=== PATIENT | female | born 1935 | race Caucasian/White ===

== ENCOUNTER 2017-01-24 00:19 | Day surgery (SDC) | payer MEDICARE ==
[~2017-01-24] VITALS: Ht 162.6 cm; Wt 68.0 kg
[2017-01-24] VITALS (13 sets, daily range): BP systolic 161–206; BP diastolic 52–82; PULSE 61–74; RESP 14–19; O2SAT 94–97
[~2017-01-24 00:19] MED LIST: ASPI-973 PO; ATOR20TA PO; LABE300T PO; LOSA50TA37 PO; MULT1CAP33 PO; RANI150C4 PO
[2017-01-24] MEDS ORDERED: Sodium Bicarb 8.4% 150 mEq/1,000 mL D5W IV ONE ×2 (06:50)
[2017-01-24 09:19] LABS: BASOPHILS % (AUTO) 0.8 % (0-3); EOSINOPHILS % (AUTO) 2.9 % (0-5); MONOCYTES % (AUTO) 7.1 % (4-12); Mean Corpuscular Hemoglobin 28.7 pg (27.0-35.0); Mean Corpuscular Volume 91.1 fL (81-100); NEUTROPHILS % (AUTO) 71.1 % (40-74); Platelet Count 263 bil/L (150-400)
--- NOTE | 2017-01-24 09:57 | NUR ---
Admitted through [facility] for a left renal stent for stenosis. Pt understands plan of care, and is ready for procedure.
[2017-01-24] MEDS ORDERED: Nitroglycerin 50,000 mcg/250 mL D5W Premix IV ONE (11:34)
[2017-01-24] MEDS ORDERED: Heparin 1,000 Units/500 mL NS Premix IV ONE (11:54)
[2017-01-24] MEDS ORDERED: fentaNYL-PF 50 mCg/mL 2 mL Inj ONE ×2 (11:55→14:25)
[2017-01-24] MEDS ORDERED: Protamine Sulfate 10 mg/mL 5 mL Inj ONE (13:42)
[2017-01-24] MEDS ORDERED: 0.9% Sodium Chloride 1,000 ML ONE (14:18)
[2017-01-24] MEDS ORDERED: Heparin 1,000 Unit/mL 10 mL Inj ONE (14:18)
--- NOTE | 2017-01-24 14:30 | NUR ---
Returned from ear mold laboratory technician following a single stent to Left renal artery placed by Dr Thompson. Right femoral access site manual hold completed at 1430. BedRest for 6 hours with post procedure with IV fluids for 20 hours - renal protection with IV Bicarb at 82ccc/Hr. Plan for overnight stay [place] [facility] Family has spoken to Dr Thompson regarding results of procedure.
[2017-01-24] MEDS ORDERED: 0.9% Sodium Chloride 250 ML BOLUS IV PRN (16:35)
[2017-01-24] MEDS ORDERED: Atropine 1 mg/10 mL (Code) Syringe IVPUSH PRN (16:35)
[2017-01-24] MEDS ORDERED: D5 IV SCH (16:35)
[2017-01-24] MEDS ORDERED: SODIUM BICARB IV SCH (16:35)
[2017-01-24] MEDS ORDERED: Ondansetron 2 mg/mL 2 mL Inj IVPUSH PRN (16:35)
[2017-01-24] MEDS ORDERED: Sodium Chloride LOK Flush 10 mL Syringe IVFLUSH PRN (16:35)
[2017-01-24] MEDS ORDERED: 0.9% Sodium Chloride 400 ML (4 HRS) IV ONE (16:35)
--- NOTE | 2017-01-24 16:44 | DI96 ---
[address] [address] PERIPHERAL CATHETERIZATION/INTERVENTION REPORT PATIENT: GIOVANI MARAVILLA : 1935 MR#: [id number] ADMIT: 01/24/2017 JOB ID: [id number] CORRECTED REPORT DATE OF PROCEDURE: 01/24/2017 PATIENT PROFILE: The patient is an 81-year-old lady with history of severe hypertension and hypercholesterolemia. She has left internal carotid artery stenosis and mild aortic stenosis. The patient has known chronic kidney disease stage 4 with atrophy of the right kidney. Renal artery duplex showed significant stenosis of the left renal artery with a peak velocity of 509 cm/second and a peak renal/aortic ratio of 5.98. PROCEDURE: 1. Conscious sedation for 1 hour and 45 minutes. 2. Vascular access from the right groin. 3. Right external iliac angiogram. 4. Abdominal aortogram with CO2 injection. 5. Selective left renal angiogram. 6. Balloon angioplasty and stenting to the proximal left renal artery stenosis. VASCULAR CLOSURE DEVICE: None. COMPLICATIONS: None. METHOD: Conscious sedation was achieved with IV Versed and IV fentanyl. Vascular access was obtained from the right groin under 1% lidocaine local anesthesia using a 6-Dutch sheath. It was somewhat difficult to advance an 0.035 wire into the abdominal aorta due to atherosclerotic plaque in the iliac artery. Right iliac angiogram was performed in the AP view via the femoral sheath with CO2 injection. A Glidewire together with a Kumpe catheter was then directed into the abdominal aorta. The femoral sheath was exchanged to a 25 cm long sheath. A 6-Dutch pigtail catheter was placed at the L2 level and an abdominal aortogram was performed in the AP view by injecting CO2 for 20 mL. Repeated doses of heparin were given in order to maintain ACT above 250. An IM guide and Shaffer 2 guide could not engage the left renal artery ostium. A 5-Dutch Rim catheter was then used to selectively engage the left renal artery. Left renal angiogram was performed in the AP view. A Spartacore wire was placed inside his left renal artery. The Rim catheter was then removed and a 6-Dutch JR4 guide was advanced. The proximal left renal artery lesion was pre-dilated with a 4.0 x 15 mm balloon. A Herculink 5 x 15 mm stent was placed in the proximal left renal artery and deployed at 14 atmospheres for 20 seconds. A 6 x 20 mm balloon was used to flare up the origin of the stent. It was inflated up to 8 atmospheres for 15 seconds. Final angiogram was obtained. Following sheath removal, hemostasis was achieved by manual compression. The patient tolerated the procedure well. She was transferred to the [facility] in good condition. TOTAL CONTRAST USED: 45 mL. TOTAL FLUOROSCOPY TIME: 13 minutes. RESULTS: 1. The right external iliac artery and right common femoral artery have diffuse atherosclerotic plaque. 2. There is a single left renal artery originating at the L2 vertebral body. 3. Severe 90% stenosis at the origin of the left renal artery with an 80 mm pressure gradient. 4. Successful balloon angioplasty and stenting to the severe left renal artery stenosis. Corrected by GS 03/01/17 at 9:34 DOS. MTDD
--- NOTE | 2017-01-24 17:17 | NUR ---
Report given to Fidel Lyn machine operator cane cutter for [facility]. No change in Right femoral access site - scant ooze, but soft and non-tender.
--- NOTE | 2017-01-24 18:21 | NUR ---
Patient arrived to [facility] : Patient arrived to [facility] at 1745. She remains in the Supine position untill 2030 per procedure protocol. She had Renal Stent placed. Her right groin site is soft with no clotting present . Small Dot of red blood under dressing noted. No active bleeding. Palpable pulses in patients right foot and left foot. Patient states that she is not having pain. Patient is eating her dinner. She has call light and was oriented to her caregivers. and call button.
[2017-01-25 00:18] VITALS: BP 184/66; PULSE 79; RESP 18; O2SAT 95
[2017-01-25 05:02] VITALS: BP 156/44; PULSE 73; RESP 18; O2SAT 95
--- NOTE | 2017-01-25 05:03 | NUR ---
Abdominal Discomfort Pt complaint of abdominal discomfort and received PO tylenol. Pt eventually went to sleep and after waking this morning for AM vitals Pt reported feeling no discomfort any more. Pt has been up to to BR several times to void no blood in urine noted, and Pt has been alert and oriented all shift.
[2017-01-25 05:05] VITALS: PULSE 77
[2017-01-25 06:57] LABS: Mean Corpuscular Hemoglobin 28.6 pg (27.0-35.0); Mean Corpuscular Volume 91.4 fL (81-100)
[2017-01-25 08:00] VITALS: PULSE 69
[2017-01-25 08:53] VITALS: BP 146/48; PULSE 70; RESP 16; O2SAT 96
[2017-01-25 12:24] VITALS: BP 181/65; PULSE 71; RESP 16; O2SAT 96
--- NOTE | 2017-01-25 13:38 | DIS ---
[address] [address] DISCHARGE SUMMARY PATIENT: GIOVANI MARAVILLA : 1935 MR#: [id number] ADMIT: 01/24/2017 JOB ID: [id number] DIS: 01/25/2017 ADMITTING DIAGNOSES: 1. Severe left renal artery stenosis. 2. Chronic kidney disease, stage 4. DISCHARGE DIAGNOSES: 1. Severe left renal artery stenosis. 2. Chronic kidney disease, stage 4. SECONDARY DIAGNOSES: 1. Atrophic right kidney. 2. Mild aortic stenosis. 3. Left internal carotid artery stenosis. 4. Hypertension. 5. Hyperlipidemia with target LDL less than 70 mg/dL. 6. Snoring. 7. Peripheral arterial disease. PROCEDURES: 1. Abdominal aortogram with CO2 injection. 2. Selective left renal angiogram. 3. Balloon angioplasty and stenting to the proximal left renal artery. COMPLICATIONS: None. HISTORY: Please see the detailed history in the accompanying office note dated January 11, 2017. The patient underwent left renal angiogram, which demonstrated severe 90% proximal left renal artery stenosis with 80 mm pressure gradient. This was successfully treated with balloon angioplasty and stenting. The patient was discharged from the hospital on the following day in good condition. Her BUN and creatinine on January 24, 2017 was 39 and 1.61 and came down to 27 and 1.39 on January 25, 2017. The patient will return to see me in 2-3 weeks with BMP. Her discharge medications remain the same with the addition of Plavix 75 mg once daily for at least three months. [facility]
--- NOTE | 2017-01-25 14:30 | NUR ---
Discharge Patient given discharge orders. Patient given hard copy of prescription. Patient given medication list with written and verbal times of when medication is due next. Patient IV removed fully intact and asymptomatic. Patient telemetry removed. Patient given informational packet. Patient assisted to main entrance by staff. Patient left with all personal belongings.
== END 2017-01-25 14:28 | disposition home or self-care (01) ==
LOC: SOUO 00:19 → MPC 17:48 → SOUO 23:59
PROVIDERS: ATTEND Internal Medicine Interventional Cardiology
DX: I70.1 Atherosclerosis of renal artery (principal); I12.9 Hypertensive chronic kidney disease with stage 1 through stage 4 chronic kidney disease, or unspecified chronic kidney disease; N18.4 Chronic kidney disease, stage 4 (severe); I65.22 Occlusion and stenosis of left carotid artery; I35.0 Nonrheumatic aortic (valve) stenosis; E78.5 Hyperlipidemia, unspecified; E78.00 Pure hypercholesterolemia, unspecified; Z79.82 Long term (current) use of aspirin
CPT/HCPCS: 36251; 36415; 37236; 80048; 85025; 85027; 85610; 93005; 99152; 99153; C1725; C1769; C1876; C1887; J1644; J2060; J2250; J2720; J3010; J7030; J7070; Q9967

== ENCOUNTER 2017-07-12 15:33 | Observation (INO) | payer MEDICARE ==
[2017-07-12] VITALS (13 sets, daily range): BP systolic 178–210; BP diastolic 56–79; PULSE 68–74; RESP 16–24; O2SAT 95–99
[~2017-07-12] VITALS: Ht 162.6 cm; Wt 62.6 kg
[~2017-07-12 15:33] MED LIST changes: +AMLO5TAB2 PO; +IRON1TAB97 PO
--- NOTE | 2017-07-12 16:56 | DRSVH ---
PROCEDURE: X-RAY CHEST ONE VIEW, PORTABLE ([id number]) INDICATIONS: hypertension, ?hypertensive emergency TECHNIQUE: One view of the chest was acquired. COMPARISON: [facility], XR CHEST 2VW, 07/10/2017, 13:25. FINDINGS: Surgical changes and devices: None. Lungs and pleura: No pleural effusions or pneumothorax. Moderate left basilar airspace opacity is pr esent, as before. Mediastinum: Mediastinal contours appear normal. Heart size is normal. Bones and chest wall: No suspicious bony lesions. Overlying soft tissues appear unremarkable. IMPRESSION: No change in left basilar pneumonia. Continued plain film surveillance is recommended to ensure resolution, and to exclude underlying or central malignancy. Dictated by: Melissa Colby M.D. on 07/12/2017 at 16:54 Approved by: Melissa Colby M.D. on 07/12/2017 at 16:54
--- NOTE | 2017-07-12 17:25 | ED.REPORT ---
HPI-General Illness Date of Service Jul 12, 2017 ED Provider: Andrez Cook MD Pt is an 82 y/o female w/ a hx of CKD 4, left renal artery stenosis, IgG monoclonal gammopathy, mild aortic stenosis, left ICA stenosis, HTN, HLD, PAD, presenting to the ED with family by recommendation of her louver door assembler due to severe hypertension. The patient was recommended to come to the ED by louver door assembler Dr. Richardson with concern for hypertensive emergency after persistent HTN of >200 systolic. Her blood pressure has been running high, however has been getting progressively worse over the past several days. They have been attempting to use labetalol but with only minimal success. No other notable alleviating or exacerbating factors. This morning she experiencing a mild, nonradiating, posterior RODRIGUEZ which resolved after taking ASA x2. She has been having tremors for about 1 month and also recently has been having unsteady gait. Pt denies vision changes, speech changes, focal numbness/weakness, chest pain, abdominal pain, SOB. She has been experiencing a cough for weeks which was diagnosed as pneumonia and was started on antibiotics with good resolve of symptoms. No other complaints at this time. Nursing Notes Stated Complaint: HYPERTENSION-SENT BY DRS OFFICE Chief Complaint: General Complaint Nursing Notes Reviewed: Yes Allergies: Coded Allergies: azithromycin (Verified Adverse Reaction, Intermediate, N/V, 01/24/17) Scheduled Aspirin (Aspirin) 81 Mg Tablet 81 MG PO QAM Atorvastatin (Lipitor) 20 Mg Tablet 20 MG PO HS Chlorthalidone (Chlorthalidone) 25 Mg Tablet 25 MG PO QAM Ferrous Sulfate (Ferrous Sulfate) 325 Mg Tablet 325 MG PO DAILY Labetalol (Labetalol) 200 Mg Tablet 400 MG PO TID Levofloxacin (Levofloxacin) 750 Mg Tablet 750 MG PO DAILY Lisinopril (Lisinopril) 10 Mg Tablet 10 MG PO QAM Multivitamin (Multivitamins) 1 Each Capsule 1 EACH PO DAILY Patiromer Calcium Sorbitex (Veltassa) 8.4 Gram Powd.pack 8.4 GM PO QAM Ranitidine (Ranitidine) 150 Mg Capsule 150 MG PO QAM Scheduled PRN Acetaminophen (Acetaminophen) 325 Mg Tablet 650 MG PO Q4H PRN PRN For Fever General Time Seen by MD: 16:13 Chief Complaint Other (HTN) Hx Obtained From: Patient Arrived By: Walk-in Sudden in Onset?: No Onset Occurred: Onset unknown Symptom Duration: Since onset Location: : Head Quality: Aching Severity: Current: No pain currently Severity: Maximum: Moderate Recent Healthcare: Recent doctor visit, Recent testing Past Medical History Past Medical History 1. Severe left renal artery stenosis. 2. Chronic kidney disease, stage 4. 1. Atrophic right kidney. 2. Mild aortic stenosis. 3. Left internal carotid artery stenosis. 4. Hypertension. 5. Hyperlipidemia with target LDL less than 70 mg/dL. 6. Snoring. 7. Peripheral arterial disease. Past Surgical History Cholecystectomy Lynn's diverticulum Left total knee replacement Left renal stent Smoking History Never Smoker Social History Alcohol Use: "Social" Drug Use: Denies drug use Other Social History: Good social support Ambulatory Status Independent Review of Systems Full Review of Systems Constitutional: Denies: Fever Eyes: Denies: Diplopia Ears / Nose / Throat: Denies: Sore throat Respiratory: Denies: Shortness of breath Cardiovascular: Denies: Chest pain GI: Denies: Abdominal pain, Vomiting Female: Denies: Dysuria Musculoskeletal: Denies: Back pain Hematologic: Denies Bruising Skin: Denies Rash Allergy / Immune: Denies: Itching Neurologic: Reports: Headache, Problem walking, Shaking, Denies: Confusion, Focal weakness, Numbness, Seizure, Slurred speech, Syncope , Unable to speak, Vision change Psychiatric: Denies: Change mental status Complete sys rev & neg: except as marked. Physical Exam Nursing note and vitals reviewed. Constitutional: Well-developed, well-nourished. Not diaphoretic. Head: Normocephalic and atraumatic. Mouth/Throat: Oropharynx is clear and moist. No oropharyngeal exudate. Eyes: EOM are normal. Pupils are equal, round, and reactive to light. Neck: Supple, no tracheal deviation. Cardiovascular: Normal rate, regular rhythm. Equal and intact distal pulses throughout. Pulmonary/Chest: Effort normal and breath sounds normal. No respiratory distress. Abdominal: Soft. No distension. There is no tenderness, rebound, or guarding. Musculoskeletal: Range of motion grossly intact, moving all extremities. No edema or tenderness appreciated. Neurological: AOx3. Grossly nonfocal exam. Strength and sensation intact and equal to bilateral upper and lower extremities. No facial droop. Normal finger to nose testing. Normal heel to hoover. Skin: Warm and dry, no rashes or pallor appreciated. Psychiatric: Appropriate mood and affect. Behavior appears normal. Vital Signs Vital Signs Date Time Temp Pulse Resp B/P Pulse Ox O2 Delivery O2 Flow Rate FiO2 07/12/17 18:36 196/58 07/12/17 18:10 194/65 07/12/17 17:47 70 18 210/69 99 Room Air 07/12/17 17:03 68 24 198/58 97 Room Air 07/12/17 16:51 198/58 07/12/17 16:50 201/63 07/12/17 15:42 36.6 73 18 181/79 96 Initial VS: Reviewed Interpretation & Diagnostics Lab Results Interpretation Result Diagram: 07/12/17 1739 07/12/17 1739 Test 07/12/17 17:39 07/12/17 17:40 07/12/17 17:51 White Blood Count 6.0th/mm3 (3.8-10.1) Red Blood Count 3.20mil/mm3 (3.90-5.20) Hemoglobin 9.0g/dL (12.0-15.6) Hematocrit 28.3% (35.0-46.0) Mean Corpuscular Volume 88.4fL (81-100) Mean Corpuscular Hemoglobin 28.1pg (27.0-35.0) Mean Corpuscular Hemoglobin Concent 31.8% (32.0-37.0) Red Cell Distribution Width 14.3% (12.3-15.4) Platelet Count 185bil/L (150-400) Neutrophils (%) (Auto) 70.6% (40-74) Lymphocytes (%) (Auto) 20.2% (14-46) Monocytes (%) (Auto) 6.3% (4-12) Eosinophils (%) (Auto) 2.2% (0-5) Basophils (%) (Auto) 0.5% (0-3) Prothrombin Time 11.8sec (8.1-12.5) Prothromb Time International Ratio 1.10ratio Sodium Level 138mEq/L (134-144) Potassium Level 5.2mEq/L (3.5-5.2) Chloride Level 108mEq/L (97-108) Carbon Dioxide Level 17mmol/L (18-29) Blood Urea Nitrogen 56mg/dL (8-27) Creatinine 3.01mg/dL (0.57-1.00) Estimat Glomerular Filtration Rate 21mL/min (>59) Glucose Level 93mg/dL (60-99) Calcium Level 9.7mg/dL (8.5-10.1) Magnesium Level 1.5mg/dL (1.6-2.6) Total Bilirubin 0.4mg/dL (0.0-1.2) Aspartate Amino Transf (AST/SGOT) 13U/L (0-50) Alanine Aminotransferase (ALT/SGPT) 8U/L (0-32) Alkaline Phosphatase 76U/L (25-165) Troponin T < 0.010ug/L (0.0-0.011) Total Protein 7.3g/dL (6.4-8.4) Albumin 3.6g/dL (3.4-5.0) Hold Boland Top Tube Received (Received) Hold Urine Received (Received) ECG Interpretation ECG Interpretation: Sinus rhythm rate 68 LVH Time: 16:50 Interpreted by: ED physician X-Ray Chest Interpretation Chest Xray Interpretation: IMPRESSION: No change in left basilar pneumonia. Continued plain film surveillance is recommended to ensure resolution, and to exclude underlying or central malignancy. Dictated by: Melissa Colby M.D. on 07/12/2017 at 16:54 Approved by: Melissa Colby M.D. on 07/12/2017 at 16:54 View: Portable, 1 view Interpretation / Wet Read by: Interpret - Radiologist CT Head Interpretation Study: Head CT no contrast Interpretation / Wet Read by: Interpret - Radiologist Re-Eval/Medical Decision Med Decision/Clinical Course In summary, 82-year-old female with a history of CKD presenting to the emergency department for evaluation of worsening hypertension in the setting of poor renal function and feeling unsteady. Obvious concern for hypertensive emergency; EKG demonstrates sinus rhythm with an LVH pattern; troponin negative. Hemoglobin of 9, creatinine of 3.01, magnesium of 1.5. Hemoglobin is stable from previous, however creatinine is slightly worse from earlier this month. Head CT negative for any acute bleed or other acute abnormality. Chest x-ray demonstrates a persistent left basilar opacity thought to be pneumonia; patient has been getting treatment for this and is asymptomatic at this time, however this may need to be followed further with a CT scan to further evaluate for neoplasm. Her neurologic exam here is grossly normal with intact [id number] and heel- to-hoover testing, cranial nerves intact, as well as her strength and sensation. She is not having any garbled speech. She does seem to be somewhat unsteady on her feet, however it is unclear if this is related to generalized weakness and does not seem to be focal on examination. I spoke with Dr. Richardson as per below; appreciate her involvement and recommendations. Patient hypertensive here in the ED and started on labetalol - initial goals will be to keep her systolic pressures within the 170s this evening. Tried multiple doses without success; will plan to start her on a labetalol drip for now to obtain target BP. I discussed the patient with the hospitalist, who agrees with the plan and to admit for further management and evaluation. Patient agreeable to the plan as stated, no further questions. Time of Eval: 17:29 Re-Evaluation/Progress Note: Pt rechecked. Informed pt of need for admission. Pt understands and agrees with plan for admission. All questions addressed. Consultation : Referral / Consult Name: Francsico Armstrong MD Consulted With: Nephrology Call Returned at: 15:23 [employer] Internship: Agrees with eval, Agrees with plan Note: Reduce HTN with Labetalol. Admit to hospital. Target SBP in 170s for tonight. Will consult during admit. Counseled Regarding: Diagnosis, Lab results, Need for admission Discharge & Departure Primary Impression: Severe hypertension Additional Impression: Chronic kidney disease Chronic kidney disease stage: stage 4 (severe) Qualified Code: N18.4 - Chronic kidney disease, stage 4 (severe) Disposition: ADMITTED TO HOSPITAL Discharge Condition All VS Reviewed: Yes Condition: Stable Referrals: Nandini Cotter (PCP) Crit Care Except Billable Proc Time Spent: 30-74 minutes Services Performed: Patient management by me, Time spent at bedside, Reviewing test results, Reviewing imaging, Discussing patient care, Documentation in record, Time with fam/surrogate Critical Care Notes: Please see MDM. Scribe Attestation Portions of this note were transcribed by Mike Loco. I, Dr. Cook personally performed the history, physical exam and medical decision-making; I reviewed and confirmed the accuracy of the information in the transcribed note. copies to: Nandini Cotter William B MD Jul 12, 2017 17:25 MIKE LOCO Jul 12, 2017 17:34
[2017-07-12 17:45] LABS: BASOPHILS % (AUTO) 0.5 % (0-3); EOSINOPHILS % (AUTO) 2.2 % (0-5); MONOCYTES % (AUTO) 6.3 % (4-12); Mean Corpuscular Hemoglobin 28.1 pg (27.0-35.0); Mean Corpuscular Volume 88.4 fL (81-100); NEUTROPHILS % (AUTO) 70.6 % (40-74); Platelet Count 185 bil/L (150-400)
[2017-07-12] MEDS ORDERED: Labetalol 5 mg/mL 20 mL Inj IVPUSH ONE ×3 (17:45→19:30)
[2017-07-12 17:58] LABS: INR 1.1 ratio
[2017-07-12 18:16] LABS: Magnesium 1.5 mg/dL (1.6-2.6)
[2017-07-12 18:22] LABS: TROPONIN T < 0.010 ug/L (0.0-0.011)
--- NOTE | 2017-07-12 18:34 | DRSVH ---
PROCEDURE: CT BRAIN WITHOUT CONTRAST ([id number]) INDICATIONS: hypertension, resolved headache TECHNIQUE: Noncontrast 4.5 mm thick angled axial sections acquired from the foramen magnum to the vertex, with c oronal reformats. COMPARISON: [facility], CT, BRAIN W/O CONTRAST, 06/17/2014, 13:57. FINDINGS: Image quality: Excellent. CSF spaces: Basal cisterns are patent. No extra-axial fluid collections. The ventricles are symmet megan in size and shape. Brain: No intracranial bleeds or masses. There is cerebral volume loss for age, with resultant vent ricular and sulcal prominence. There are periventricular and deep white matter chronic small vessel ischemic changes. There is intracranial internal carotid artery atherosclerosis. Skull and face: Calvarium and visualized facial bones appear intact, without suspicious lesions. Sinuses: Visualized sinuses and mastoids are clear. IMPRESSION: No acute intracranial process. Dictated by: Kali Mercado M.D. on 07/12/2017 at 18:30 Approved by: Kali Mercado M.D. on 07/12/2017 at 18:32
[2017-07-12] MEDS ORDERED: FERR-83 PO (19:19)
[2017-07-12] MEDS ORDERED: HYG25 PO (19:19)
[2017-07-12] MEDS ORDERED: LISI10TA PO (19:19)
[2017-07-12] MEDS ORDERED: LABE200T PO (19:19)
[2017-07-12] MEDS ORDERED: PATI8.4P PO (19:19)
[2017-07-12] MEDS ORDERED: Polyethylene Glycol (PEG) 17 Gm Powder PO PRN (19:30)
[2017-07-12] MEDS ORDERED: Alum-Mag Hydrox-Simeth 30 mL Suspension PO PRN (19:30)
[2017-07-12] MEDS ORDERED: Ondansetron 2 mg/mL 2 mL Inj IVPUSH PRN (19:30)
[2017-07-12] MEDS ORDERED: ACET325T51 PO (19:34)
[2017-07-12] MEDS ORDERED: LEVO750T39 PO (19:34)
[2017-07-12] MEDS ORDERED: Magnesium Sulf 2 Gm/50mL Water 2 GM in IV Premix 1 EACH IV ONE (19:40)
[2017-07-12] MEDS ORDERED: LABETALOL IV PRN (20:00)
[2017-07-12] MEDS ORDERED: SODIUM CHLORIDE 0.9% IV PRN (20:00)
[2017-07-12] MEDS ORDERED: 0.9% Sodium Chloride 250 ML ONE (20:10)
--- NOTE | 2017-07-12 20:56 | NUR ---
Admit nurse note Admission assessment completed based on pt. recall. Pt. denies complaints at present and is eating her dinner. She normally lives independently with her in [place] but came after her htn did not respond to at home labetolol. She developed a h/a and increased tremors today, saw her public policy analyst and was referred here. Son is at bedside and states pt. is anxious about leaving her at home. Allergy verified. pt. oriented to room and educated re: fall prevention and call fletcher. Med history obtained by ED pharmacist. Advance directives paperwork given per pt. request. Report given to Angy Love RN.
--- NOTE | 2017-07-12 21:59 | PCM.HPMED ---
Subjective Date of Service Jul 12, 2017 Primary Provider: Admitting Physician: Marquez Reyes MD Primary Care Physician: Nandini Cotter Attending Physician: Marquez Reyes MD Chief Complaint: Patient 82-year-old right-handed female from home was referred from her line up examiner for evaluation of severe hypertension. History of Present Illness: Patient carries a medical history significant for TIA, hypertension, hyperlipidemia, chronic kidney disease stage IV, and severe left renal stenosis status post stenting. Patient always had a concern for hypertension, reported bilateral posterior headache and increasing tremors started this morning. Patient went to her line up examiner for evaluation and found severe hypertension blood pressure 200/90 , thus, presented to the ED. , patient denies any headaches, dizziness, unilateral weakness, tingling, numbness, palpitation, shortness of breath, chest pain, or nausea or vomiting. Patient is noted to have mild right-sided facial droop, however this is more an inflammation as she has been irritating her left upper lips and due to dry mouth. Patient also observed to have mild dysarthria, however family noted that this is chronic. In the ED, patient blood pressure was 201/63. With labs creatinine 3.01, baseline 2.7-2.8. No elevated troponin, EKG unremarkable. Patient was thus given 2 doses of 20 mg of labetalol IV push. Due to headaches patient also had a CT head done, readings negative for any acute bleeding. Patient admitted for hypertensive emergency. Review of Systems: A comprehensive review of systems was conducted with the patient and found to be negative except as above in the History of Present Illness. Allergies Coded Allergies: azithromycin (Verified Adverse Reaction, Intermediate, N/V, 07/12/17) Home Medications Levaquin 750 mg daily Veltassa 8.4mg daily Labetalol 400 mg 3 times a day Lisinopril 10 mg daily Chlorthalidone 25 mg daily Ranitidine 150 mg daily Atorvastatin 20 mg daily Multivitamin Iron supplement Aspirin 81 mg daily PMH Severe left renal stenosis History of TIA Hypertension Dyslipidemia Chronic kidney disease stage IV Peripheral vascular disease Lynn's diverticular disease Surgical History Left renal balloon angioplasty 01/24/2017 Cholecystectomy Left total knee replacement Family History Telemetry history of hypertension Mother secondary to brain hemorrhage Father secondary to mesenteric ischemia Social History Hx Alcohol Use: Yes Hx Substance Use: No Hx Tobacco Use: No Smoking Status: Never Smoker Exam Vital Signs Vital Sign - Last Date Time Temp Pulse Resp B/P Pulse Ox O2 Delivery O2 Flow Rate FiO2 07/12/17 19:53 36.4 74 18 194/68 95 Room Air Exam General: No acute distress, appropriately interactive, tremulous, right-hand, no word salad, no expressive or receptive aphagia HEENT: Normocephalic, atraumatic. PERRLA, EOMI, Anicteric sclerae, moist conjunctivae. Neck: No JVD, No bruits. No lymphadenopathy or thyromegaly. Cardiovascular: Regular rate and rhythm, 2+ systolic murmur, no rub or gallop Pulmonary: b/l air sound with no mild wheezes, no rhonchi or crackles appreciated. Abdomen: +Bowel sound, Soft, nontender, nondistended. Extremities: No clubbing or cyanosis, no lymphedema, no b/l lower leg edema Skin: Normal temperature, turgor, and texture; no rash. No visualized skin ulcer. Neurological: CN II-VII grossly intact, moving equally on all 4 extremities, 5 out of 5 motor strength throughout, finger to nose and heel to hoover test negative. Psychiatric: Normal mood and affect. AOx3 Lab and Diagnostics Result Diagram: 07/12/17173807/12/171738 X-Rays, CTs and MRIs PROCEDURE: CT BRAIN WITHOUT CONTRAST ([id number]) INDICATIONS: hypertension, resolved headache IMPRESSION: No acute intracranial process. Dictated by: Kali Mercado M.D. on 07/12/2017 at 18:30 Assessment & Plan Patient is an 82-year-old right-handed female with a medical history significant for peripheral artery disease, chronic kidney disease stage IV, hypertension, dyslipidemia, and history of TIA presented headaches, admitted for hypertensive emergency. Hypertensive emergency -Has ANGELA, high BP possibly contributed to headache -CT head negative -Labetalol 20 mg IV push given in the ED -Restart home labetalol 400 mg 3 times a day -Consider adding clonidine or amlodipine to augment in the AM -Goal BP lower by 20-25% from 200 mmHg within the next 8 hours. If BP sustain above 200mmHg, nicardipine drip -Telemetry monitoring, neuro check every 4 hours, low threshold to MRI, or repeat CT head -Client Portfolio Manager Dr. AnantFrancisco saeed has been consulted and is following Acute on chronic kidney injury -Baseline creatinine 2.6-2.7 -Likely secondary to elevated blood pressure -Holding chlorthalidone and lisinopril -Hydrate with normal saline 100 mL an hour Hypomagnesemia -Replace per protocol Bronchitis -Patient was diagnosed with bronchitis and 07/10/2017 -Continue taking Levaquin for 10 days course Dyslipidemia -Restart home atorvastatin GERD -Hold home ranitidine as pharmacy does not carry this medication. -Start Famotidine 20 mg twice a day CODE STATUS full code DVT prophylaxis heparin Patient Status: Patient is admitted under observation status with expected length of stay LESS than 2 midnights due to severity of presenting symptoms, risk of adverse event, and complexity of treatment plan. GI Prophylaxis: H2 troy VTE Prophylaxis: Sub-Q Heparin (Unfractionated) Resuscitation Status: CPR: Attempt Resuscitation Attending Statement The patient was seen and examined together with Dr. Miner on 07/12 and I agree with the history, exam and plan as outlined in the note above. Yang Miner DO Jul 12, 2017 21:59 Marquez Reyes MD Jul 13, 2017 00:26
[2017-07-12] MEDS: 0.9% Sodium Chloride 1,000 ML IV SCH (22:05)
[2017-07-13] VITALS (16 sets, daily range): BP systolic 90–228; BP diastolic 42–91; PULSE 66–88; RESP 16–20; O2SAT 94–96
--- NOTE | 2017-07-13 00:24 | NUR ---
Arrival to [facility] [facility] Patient arrived to room 3002 at 1955 from ED, accompanied by family. Alert and oriented, denies pain. Telemetry connected. MD in patient's room shortly after her arrival, admit questions completed by admit RN. Oriented to room, call light, plan of care, policies, intentional rounding. White board updated.
[2017-07-13] MEDS ORDERED: Nitroglycerin 2% 1 Gm Ointment TOPICAL ONE (00:25)
[2017-07-13] MEDS ORDERED: cloNIDine 0.1 mg Tablet PO ONE ×2 (00:25→12:25)
--- NOTE | 2017-07-13 00:26 | NUR ---
Blood pressures Patient's blood pressures have been 190/70's since admit. Scheduled medications given as ordered. Night paged at 0020 with new orders received. Will update patient on intervention and administer new medications. Monitoring BP Q2 hours overnight. Addendum: 07/13/17 at 0608 by ELVIA MONTOYA RN Administered OT doses of Clonidine and Nitro paste, BP decreased to 171/63. Repeat BP check at 0600 was 197/70. paged. Addendum: 07/13/17 at 0622 by ELVIA MONTOYA RN placed CPOE order to give 0830 Labetalol now, administered. Patient updated on plan.
[2017-07-13 03:17] LABS: APPEARANCE,URINE CLEAR (CLEAR,HAZY); COLOR,URINE YELLOW (YELLOW); OCCULT BLOOD,URINE NEGATIVE (NEGATIVE); UROBILINOGEN,URINE NORMAL (NORMAL)
[2017-07-13 05:56] LABS: BASOPHILS % (AUTO) 0.4 % (0-3); MONOCYTES % (AUTO) 7.3 % (4-12); Mean Corpuscular Hemoglobin 27.6 pg (27.0-35.0); Mean Corpuscular Volume 88.9 fL (81-100); NEUTROPHILS % (AUTO) 67.8 % (40-74); Platelet Count 178 bil/L (150-400)
[2017-07-13 06:19] LABS: Magnesium 2.1 mg/dL (1.6-2.6); Phosphorus 3.3 mg/dL (2.5-4.9); Unsaturated Iron Binding 164.7 ug/dL
[2017-07-13] MEDS: Heparin 5,000 Unit/mL Inj SUBQ SCH ×3 (07:55→17:08)
[2017-07-13] MEDS ORDERED: levoFLOXacin 750 mg Tablet PO SCH (08:30)
[2017-07-13] MEDS: 0.9% Sodium Chloride 1,000 ML IV SCH (08:37)
--- NOTE | 2017-07-13 10:17 | NUR ---
Social Work: Initial Assessment Data: See initial assessment. Patient is an 82 year old female who was admitted for severe HTN & ANGELA per H&P. Patient's insurance provider is [employer] [place] Medicare and per PCP is VER[facility]NICA [place]. EMR reviewed. SW met with patient to discuss discharge planning. SW role explained. Patient informed SW that she lives with her spouse in a mobile home park located in [place]. Patient is I with ADLs and her home has 4 steps at entrance. Patient considers her spouse to be her main support system. Patient confirms that she has DPOA and AD in place but plans to make some changes to them. Patient confirmed that she had the AD information that she needed and declined additional resources. Patient denies having home health services or SNF placement in the past. Patient denies having regional intermodal truck driver care insurance or VA benefits. Upon discharge, patient states that her spouse will transport her home via POV. SW provided patient with a discharge planning checklist booklet and encouraged to call with any questions/concerns. Phone number provided. Patient discussed in morning rounds. During rounds there were no concerns noted by MD or staff. Patient will likely discharge home when medically stable. No needs are anticipated at this time. SW will continue to follow. Assessment: Patient will discharge home. No needs anticipated at this time. Plan: Patient will discharge home when medically stable. Transportation will be provided by spouse via POV. No needs are anticipated at this time. SW will continue to follow. RODNEY Hess Addendum: 07/13/17 at 1033 by AUBREE KHALIL Amended: Links added.
[2017-07-13] MEDS: cloNIDine 0.1 mg Tablet PO PRN ×2 (10:28→11:49)
--- NOTE | 2017-07-13 10:30 | NUR ---
Hypertension B/P - 191/74, HR 67 - PO Catapres given as ordered. Will recheck B/P in 1 hour. Call light in reach, frequent rounding in place. Addendum: 07/13/17 at 1222 by BARTOLO MAYORGA RN B/P rechecked 1140 reading 204/75 HR 66. advised, New order received. Will continue to monitor.
--- NOTE | 2017-07-13 13:14 | NUR ---
SUSIE explained and signed. Copy of RICHARDS given to pt.
[2017-07-13] MEDS ORDERED: Ferric Sod Gluc Complex Inj 125 MG in 0.9% Sodium Chloride 100 ML IV ONE (14:00)
[2017-07-13] MEDS ORDERED: Furosemide 10 mg/mL 4 mL Inj IVPUSH ONE (14:55)
--- NOTE | 2017-07-13 14:59 | CONS ---
[address] [address] CONSULTATION REPORT PATIENT: GIOVANI MARAVILLA : 1935 MR#: [id number] ADMIT: 07/12/2017 JOB ID: [id number] DATE OF SERVICE: 07/13/2017 NEUROLOGY CONSULTATION: REQUESTING PHYSICIAN: Dr. Braun REASON FOR CONSULTATION: Management of uncontrolled hypertension. CHIEF COMPLAINT: Uncontrolled hypertension, headache, and resting tremor. 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 The patient is known to have resistant hypertension. The patient underwent left renal artery stenting in January 2017 given severe 90% stenosis of the left renal artery. The patient was found to have atrophic right kidney, also was thought to be due to renovascular disease. Her right kidney measured 8.2 cm. Unfortunately after the procedure her serum creatinine continued to rise progressively. Her blood pressure has not been controlled. We have tried several regimens with adverse effects and varied results. The patient reported that she had severe lower extremity swelling from taking Norvasc. We have to limit the usage of RAAS blockade due to hyperkalemia. When we used loop diuretics and thiazide diuretics the patient developed intravascular volume depletion and worsened serum creatinine. Yesterday she came to my clinic complaining of uncontrolled blood pressure systolic over 200-210 over 60-70. She was complaining of headaches and unsteady gait. The patient was instructed to go to the emergency department for further investigation. Her initial vitals were 181/79, overnight her blood pressure highest value was 204/56. Her initial serum creatinine was 3.01, magnesium of 1.5, potassium of 5.2. Of note, the patient was started on Veltassa treating for hyperkalemia. Overnight she received IV labetalol as needed. Oral labetalol 400 mg three times a day was also restarted. Normal saline at 100 mL/hour given last night as well. During my visit today the patient seems to be comfortable. She has less resting tremors. No headaches. No nausea, vomiting. No blurred vision. No neurological deficit. She has no fever, no chills. She reported history of chronic cough and recently found to have left lower lung density and was given Levaquin treating for possible community-acquired pneumonia. PAST MEDICAL HISTORY: 1. Stage 4 chronic kidney disease. 2. Longstanding hypertension with hypertensive nephrosclerosis. 3. Renovascular disease with severe left renal artery stenosis, 90%, status post stenting in January 2017. 4. Chronic NSAID use. 5. Atrophic right kidney. 6. Dyslipidemia. 7. Peripheral vascular disease. 8. Sleep apnea, refused to use CPAP. PAST SURGICAL HISTORY: 1. Status post left total knee replacement. 2. Status post cholecystectomy. 3. Status post left renal artery angioplasty and stent placement. 4. Appendectomy. 5. Tonsillectomy. 6. Achillis tendon repair. 7. Right ovarian cyst removal. SOCIAL HISTORY: She is a retired RN. Denies current use of alcohol, tobacco, or illicit drugs. FAMILY HISTORY: Father secondary to mesenteric ischemia. Mother secondary to brain hemorrhage. ALLERGIES: AZITHROMYCIN. MEDICATIONS: Veltassa 8.4 mg daily, labetalol 400 mg three times a day, lisinopril 10 mg daily, chlorthalidone 25 mg daily, Levaquin 750 mg daily, ranitidine 150 mg daily, atorvastatin 20 mg daily, multivitamin, iron supplement, aspirin 81 mg daily. REVIEW OF SYSTEMS: Fourteen point review of system was performed. PHYSICAL EXAMINATION: Vitals: Temperature 36.6, pulse 68, blood pressure 196/78. General appearance: Awake, alert, oriented x3. No acute distress. HEENT: Mild pallor. No jaundice. No JVD. No lymphadenopathy. No thyroid enlargement. Heart: Regular rhythm. Normal S1, S2. Soft systolic murmur noted. Lungs: Clear to auscultation bilaterally. No wheezing. No rhonchi. Abdomen: Soft, active bowel sounds. Nontender. Nondistended. No hepatosplenomegaly. Extremities: No edema, cyanosis, or clubbing of fingers. ASSESSMENT: 1. Hypertensive emergency with evidence of acute kidney injury. 2. 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 3. Hyperkalemia. 4. Hypomagnesemia secondary to Veltassa and chlorthalidone. 5. Severe left renal artery stenosis status post angioplasty and stenting. 6. Anemia of chronic kidney disease. PLAN: 1. Continue labetalol 400 mg t.i.d. 2. Resume Norvasc 5 mg once a day. We will try low dose given history of lower extremity swelling. 3. Add clonidine patch and clonidine as needed. 4. At doxazosin. 5. Hold SEDRICK inhibitor and ARB given hyperkalemia and evidence of acute kidney injury. 6. Start iron supplement and IV iron infusion. 7. Once blood pressure improves, will give a dose of Aranesp. 8. Will repeat renal artery Doppler to assess the patency of left renal artery. 9. The patient will be on low salt and low potassium diet. Thank you for you for allowing me to participate in the care of your patient. We will monitor along with you. MTDD
--- NOTE | 2017-07-13 15:00 | NUR ---
Hypertension B/P 228/ - scheduled meds given, made aware. Order for IV Lasix given, and administered. Will continue to monitor Addendum: 07/13/17 at 1844 by BARTOLO MAYORGA RN 1500 - B/P 210/, Dr Richardson came to bedside. Order for Xanax generated and given. Ortho static B/Ps to be taken following completion of ECHO. 1754 - Ortho static B/P completed, Dr Richardson made aware, new orders generated. - B/Ps to be taking in the sitting position, on R arm only - PM Labetolol dose to be decreased. - Ortho static B/Ps to be completed in the AM. Pt informed of changed, encouraged to contact staff with any additional concerns. Call light in reach, pt visiting with family at bedside.
--- NOTE | 2017-07-13 15:02 | PCM.PNMED ---
Subjective Date of Service Jul 13, 2017 Subjective She notes headache has resolved. She does have a history of an atrophic right kidney and had an renal artery stent placed to her left kidney. Patient denies any chest pain. Exam Vital Signs Vital Sign - Last Date Time Temp Pulse Resp B/P Pulse Ox O2 Delivery O2 Flow Rate FiO2 07/13/17 14:35 36.6 68 18 228/91 96 Room Air Intake and Output 07/12/17 07/12/17 07/13/17 Cumulative From/Thru 15:00 23:00 07:00 07/12/17 15:42 - 07/13/17 06:11 Intake Total 1078 ml 1078 ml Output Total 300 ml 300 ml Balance 778 ml 778 ml Intake Oral 350 ml 350 ml IV Total 728 ml 728 ml Output Urine Total 300 ml 300 ml Exam Constitutional: Elderly female in no acute distress Head: Normocephalic atraumatic Chest: Clear to auscultation Cor: Regular rate and rhythm S1-S2 with 2/6 systolic ejection murmur Abdomen: Soft nontender bowel sounds present Extremities: No pedal edema Neuro: Alert and oriented 3, motor strength is intact bilaterally Skin: no rashes Psych: Normal mood and affect IVs and Medications Medications Reviewed: Medications were reviewed in detail Lab and Diagnostics Laboratory Tests 72 Hours Test 07/12/17 17:39 07/12/17 17:40 07/12/17 17:51 07/13/17 03:00 White Blood Count 6.0th/mm3 (3.8-10.1) Red Blood Count 3.20mil/mm3 (3.90-5.20) Hemoglobin 9.0g/dL (12.0-15.6) Hematocrit 28.3% (35.0-46.0) Mean Corpuscular Volume 88.4fL (81-100) Mean Corpuscular Hemoglobin 28.1pg (27.0-35.0) Mean Corpuscular Hemoglobin Concent 31.8% (32.0-37.0) Red Cell Distribution Width 14.3% (12.3-15.4) Platelet Count 185bil/L (150-400) Neutrophils (%) (Auto) 70.6% (40-74) Lymphocytes (%) (Auto) 20.2% (14-46) Monocytes (%) (Auto) 6.3% (4-12) Eosinophils (%) (Auto) 2.2% (0-5) Basophils (%) (Auto) 0.5% (0-3) Prothrombin Time 11.8sec (8.1-12.5) Prothromb Time International Ratio 1.10ratio Sodium Level 138mEq/L (134-144) Potassium Level 5.2mEq/L (3.5-5.2) Chloride Level 108mEq/L (97-108) Carbon Dioxide Level 17mmol/L (18-29) Blood Urea Nitrogen 56mg/dL (8-27) Creatinine 3.01mg/dL (0.57-1.00) Estimat Glomerular Filtration Rate 21mL/min (>59) Glucose Level 93mg/dL (60-99) Calcium Level 9.7mg/dL (8.5-10.1) Magnesium Level 1.5mg/dL (1.6-2.6) Total Bilirubin 0.4mg/dL (0.0-1.2) Aspartate Amino Transf (AST/SGOT) 13U/L (0-50) Alanine Aminotransferase (ALT/SGPT) 8U/L (0-32) Alkaline Phosphatase 76U/L (25-165) Troponin T < 0.010ug/L (0.0-0.011) Total Protein 7.3g/dL (6.4-8.4) Albumin 3.6g/dL (3.4-5.0) Hold Boland Top Tube Received (Received) Hold Urine Received (Received) Urine Color Yellow (YELLOW) Urine Appearance Clear (CLEAR,HAZY) Urine pH 5.0 (5.0-8.0) Urine Specific [place] 1.025 (1.003-1.035) Urine Protein Negativemg/dL (NEG,TRACE) Urine Glucose (UA) Negativemg/dL (NEGATIVE) Urine Ketones Negativemg/dL (NEGATIVE) Urine Occult Blood Negative (NEGATIVE) Urine Nitrite Negative (NEGATIVE) Urine Bilirubin Negative (NEGATIVE) Urine Urobilinogen Normalmg/dL (NORMAL) Urine Leukocyte Esterase Negative (NEGATIVE) Urine RBC 0-2/hpf (0-2) Urine WBC 0-5/hpf (0-5) Urine Epithelial Cells Moderate/hpf (NONE-MOD) Urine Crystals None seen (NONE SEEN) Urine Bacteria Few/hpf (NONE-FEW) Urine Hyaline Casts >20/lpf (NONE) Urine Granular Casts None seen (NONE SEEN) Urine Waxy Casts None seen (NONE SEEN) Urine Red Blood Cell Casts None seen (NONE SEEN) Urine White Blood Cell Casts None seen (NONE SEEN) Urine Mucus Present (None Seen) Urine Trichomonas None seen (NONE SEEN) Urine Yeast None (NONE SEEN) Urinalysis Comment None Urine Culture Reflexed Not indicated Test 07/13/17 05:06 07/13/17 12:48 White Blood Count 5.1th/mm3 (3.8-10.1) Red Blood Count 2.97mil/mm3 (3.90-5.20) Hemoglobin 8.2g/dL (12.0-15.6) Hematocrit 26.4% (35.0-46.0) Mean Corpuscular Volume 88.9fL (81-100) Mean Corpuscular Hemoglobin 27.6pg (27.0-35.0) Mean Corpuscular Hemoglobin Concent 31.1% (32.0-37.0) Red Cell Distribution Width 14.4% (12.3-15.4) Platelet Count 178bil/L (150-400) Neutrophils (%) (Auto) 67.8% (40-74) Lymphocytes (%) (Auto) 21.1% (14-46) Monocytes (%) (Auto) 7.3% (4-12) Eosinophils (%) (Auto) 3.0% (0-5) Basophils (%) (Auto) 0.4% (0-3) Sodium Level 141mEq/L (134-144) 138mEq/L (134-144) Potassium Level 5.3mEq/L (3.5-5.2) 5.4mEq/L (3.5-5.2) Chloride Level 112mEq/L (97-108) 110mEq/L (97-108) Carbon Dioxide Level 17mmol/L (18-29) 15mmol/L (18-29) Blood Urea Nitrogen 63mg/dL (8-27) 60mg/dL (8-27) Creatinine 3.19mg/dL (0.57-1.00) 2.96mg/dL (0.57-1.00) Glucose Level 111mg/dL (60-99) 124mg/dL (60-99) Calcium Level 9.0mg/dL (8.5-10.1) 9.0mg/dL (8.5-10.1) Phosphorus Level 3.3mg/dL (2.5-4.9) Magnesium Level 2.1mg/dL (1.6-2.6) Iron Level 30ug/dL (35-150) Total Iron Binding Capacity 195ug/dL (250-450) Percent Iron Saturation 15%sat (15-50) Unsaturated Iron Binding 164.7ug/dL Ferritin 63ng/mL (13-150) Albumin 3.3g/dL (3.4-5.0) Thyroid Stimulating Hormone (TSH) 3.920uIU/mL (0.450-4.500) Free Thyroxine 1.32ng/dL (0.82-1.77) Estimat Glomerular Filtration Rate 22mL/min (>59) Result Diagram: 07/13/17 0506 07/13/17 1248 X-Rays, CTs and MRIs PROCEDURE: CT BRAIN WITHOUT CONTRAST ([id number]) INDICATIONS: hypertension, resolved headache IMPRESSION: No acute intracranial process. Dictated by: Kali Mercado M.D. on 07/12/2017 at 18:30 Cardiac Echo Impressions Name: GIOVANI MARAVILLA Study Date: 06/18/2014 Height: 64 in Hospital Exam Location: [facility] Weight: 159 lb Gender: Female BSA: 1.8 meters2 : 1935 Age: 79 yrs BP: 129/61 mmHg Reason For Study: CVA Ordering Physician: [facility] Hospitalist Performed By: Chana Mancilla Referring Physician: Kenya Ahuja Interpretation Summary The left ventricle is normal in size. Left ventricular systolic function is normal without focal wall motion abnormalities. The ejection fraction is estimated to be 60-65%. The right ventricle is normal in size and function. The right ventricular systolic pressure is estimated at 32 mmHg assuming a right atrial pressure of 3 mm Hg. The left atrium is moderately dilated. Right atrial size is normal. There is no significant valvular heart disease. The aortic root is normal size. There is no obvious cardiac source of embolus noted on this transthoracic echocardiogram. Follow-up with a CHRISTINE is suggested if cardiac source is still suspected. Assessment & Plan Patient is an 82-year-old right-handed female with a medical history significant for peripheral artery disease, chronic kidney disease stage IV, hypertension, dyslipidemia, and history of TIA presented headaches, admitted for hypertensive emergency. Hypertensive emergency -Has ANGELA, high BP possibly contributed to headache -CT head negative -Labetalol 20 mg IV push given in the ED -Restart home labetalol 400 mg 3 times a day -Have added amlodipine 5 mg by mouth daily and using Klonopin being 0.1 mg by mouth every hour when necessary systolic blood pressure greater than 180 and diastolic blood pressure greater than 95. -Goal BP lower by 20-25% from 200 mmHg within the next 8 hours. -Appreciate nephrology consultation -Telemetry monitoring, neuro check every 4 hours, low threshold to MRI, or repeat CT head -Roof Assembler Francisco Juan has been consulted and is following -Check renal ultrasound and renal artery doppler exam Acute on chronic kidney injury -Baseline creatinine 2.6-2.7 -Likely secondary to elevated blood pressure -Holding chlorthalidone and lisinopril -We will DC IV fluid hydration -Give a dose of IV Lasix 40 mg IV Hypomagnesemia -Replace per protocol Bronchitis -Patient was diagnosed with bronchitis and 07/10/2017 -Continue taking Levaquin for 10 days course Dyslipidemia -Restart home atorvastatin GERD -Hold home ranitidine as pharmacy does not carry this medication. -Start Famotidine 20 mg twice a day CODE STATUS full code DVT prophylaxis heparin Patient Status: Patient is admitted under observation status with expected length of stay LESS than 2 midnights due to severity of presenting symptoms, risk of adverse event, and complexity of treatment plan. GI Prophylaxis: H2 troy VTE Prophylaxis: Sub-Q Heparin (Unfractionated) Resuscitation Status: CPR: Attempt Resuscitation Time spent 40 minutes Kindra Braun MD Jul 13, 2017 15:02
[2017-07-13] MEDS ORDERED: cloNIDine 0.1 mg Tablet PO PRN (15:20)
[2017-07-13] MEDS: Nitroglycerin 2% 1 Gm Ointment TOPICAL SCH ×2 (15:52→21:00)
[2017-07-13] MEDS: ALPRAZolam 0.5 mg Tablet PO PRN ×2 (17:08→23:11)
--- NOTE | 2017-07-13 20:57 | DRSVH ---
[facility] [address] [place] [address] Echocardiogram Report Name: GIOVANI MARAVILLA EStudy Date: 07/13/2017 Height: 25 in Hospital Exam Location: [facility] Weight: 304 lb Gender: Female BSA: 1.2 m2 : 1935 Age: 82 yrs BP: 210/78 mmHg Reason For Study: Hypertension Ordering Physician: HOSPITALIST [facility] Performed By: [facility] Staff Referring Physician: Mahesh Vega Interpretation Summary Normal sinus rhythm. Normal LV size; mild concentric LVH; normal wall motion and LV systolic function. EF is 60-65%; stage I diastolic dysfunction. Severe biatrial enlargement. Aortic sclerosis without stenosis; mild associated aortic regurgitation. There is moderate MAC; mitral valve leaflets are normal with trace associated MR. Compared to prior study performed 05/08/2016 no significant changes have occurred. Procedure: A two-dimensional transthoracic echocardiogram with color flow and Doppler was performed. The study quality was technically adequate. Comparison is made with the echocardiogram of 05/08/2016. The patient was in normal sinus rhythm during the exam. Left Ventricle: The left ventricle is normal in size. Left ventricular wall thickness is mild-moderately increased. The ejection fraction is estimated to be 60-65%. Right Ventricle: The right ventricle is normal in size and function. Atria: The left atrium is severely dilated. The right atrium is severely dilated. The interatrial septum is intact with no evidence for an atrial septal defect. Mitral Valve: There is mild mitral annular calcification. There is trace mitral regurgitation. Aortic Valve: The aortic valve is trileaflet. The aortic valve opens well. There is mild aortic valve sclerosis. There is mild aortic regurgitation. Tricuspid Valve: The tricuspid valve is normal. There is mild tricuspid regurgitation. Pulmonic Valve: The pulmonic valve is not well visualized. There is no pulmonic valvular regurgitation. Great Vessels: The aortic root is normal size. The ascending aorta could not be visualized. The aortic arch is normal in size. The pulmonary artery is normal size. The IVC is dilated (diameter is greater than 2.1 cm) yet it collapses greater than 50% with a sniff. This suggests a right atrial pressure of 8 mm Hg. Pericardium/ Pleura There is no pericardial effusion. There is no pleural effusion. MMode/2D Measurements & Calculations LVIDd: 5.1 cm RA long axis LVOT diam: 1.7 cm LVIDs: 3.0 cm LA A2 area: 23.7 cm AoV Opening FS: 41.5 % LA A4 area: 23.8 cm RA area EPSS: 0.87 cm LA length (vol) Ao root diam IVSd: 0.97 cm : 20.1 cm LVPWd: 1.3 cm LA vol: 88.0 ml RA vol Ao Arch Diam (Prox LA vol index : 72.3 ml Trans): 2.2 cm RA : 60.8 mm2 IVC diam: 2.3 cm LV knowles. diameter/BSA LV sys. diameter/BSA RVD1 (basal) TAPSE: 2.2 cm (cm/m^2): 4.3 (cm/m^2): 2.5 Doppler Measurements & Calculations Ao V2 max MV E max familia MV E/A: 0.81 TR max familia : 186.2 cm/sec : 97.5 cm/sec Med Peak E' Familia : 282.5 cm/sec Ao max PG MV A max familia TR max PG : 13.9 mmHg : 120.0 cm/sec E/E' med: 25.7 : 31.9 mmHg Ao mean PG MV P1/2t: 41.4 msec Lat Peak E' Familia PA V2 max : 90.1 cm/sec LVOT Max Familia MVA(VTI): 1.6 cm2 E/E' lat: 23.1 PA mean PG : 108.7 cm/sec E/e' average : 2.2 mmHg LOS(I,D): 1.6 cm sev ratio MV V2 mean MV P1/2t max familia Ao V2 mean LV V1 max PG : 78.2 cm/sec : 109.8 cm/sec MV mean PG MVA(P1/2t): 5.3 cm2 Ao V2 VTI: 39.0 cmLV V1 VTI LOS(V,D): 1.4 cm2 : 25.9 cm MV V2 VTI: 37.3 cm MV dec time : 0.14 sec PA V2 mean LOS indexed to BSA : 72.6 cm/sec (cm^2/m^2): 1.3 Reading Physician:08:56 PM
[2017-07-14] VITALS (11 sets, daily range): BP systolic 125–169; BP diastolic 52–65; PULSE 64–74; RESP 16–20; O2SAT 93–96
[2017-07-14] MEDS: Heparin 5,000 Unit/mL Inj SUBQ SCH ×2 (01:00→09:06)
[2017-07-14] MEDS: Nitroglycerin 2% 1 Gm Ointment TOPICAL SCH (02:55)
[2017-07-14] MEDS ORDERED: Phenol 1.4% 177 mL Spray MUC_MEMBRM PRN (03:25)
[2017-07-14] MEDS ORDERED: Benzocaine-Menthol Lozenge 2/Pkg PO PRN (03:25)
--- NOTE | 2017-07-14 03:50 | NUR ---
Blood pressures Blood pressure measurements overnight have been steady at 160/60's. Scheduled medications given, no PRNs for hypertension. Patient has denied chest pain, headaches.
[2017-07-14 05:19] LABS: BASOPHILS % (AUTO) 0.5 % (0-3); EOSINOPHILS % (AUTO) 1.8 % (0-5); Mean Corpuscular Volume 87.3 fL (81-100); NEUTROPHILS % (AUTO) 74.5 % (40-74); Platelet Count 173 bil/L (150-400)
--- NOTE | 2017-07-14 10:11 | DRSVH ---
PROCEDURE: US RENAL WITH ARTERIES DUPLEX DOPPLER SONOGRAM, LIMITED INDICATIONS: ANGELA TECHNIQUE: Real time scanning was performed of both kidneys, followed by Color and pulsed Doppler in terrogation of the renal vessels. COMPARISON: None. FINDINGS: Aortic peak systolic velocity: 64 cm/s. Right side: Pardo-scale imaging: Kidney is 7.5 cm long; renal cortical thickness is 3.7 cm. No hydronephrosis. No nephrolithiasis. Renal cortex is increased in echogenicity. No suspicious solid renal masses. 8 mm cortical renal cyst involving the superior pole. Proximal renal artery peak systolic velocity: Not visualized. Mid renal artery peak systolic velocity: Not visualized. Distal renal artery peak systolic velocity: Visualized. Renal vein: Patent, without thrombus. Left side: Pardo-scale imaging: Kidney is 10.0 cm long; renal cortical thickness is 1.1 cm. No hydronephrosis. No nephrolithiasis. Renal cortex is normal in echogenicity. No suspicious solid renal masses. Proximal renal artery peak systolic velocity: Not visualized. Mid-renal artery peak systolic velocity: Not visualized. Distal renal artery peak systolic velocity: Not visualized. Renal vein: Patent, without thrombus. IMPRESSION: 1. Right renal atrophy present with renal cortical thinning and increased renal cortical echogenicity consistent with medical renal disease. 2. Grossly normal appearance of the left kidney. 3. Renal arteries obscured by overlying bowel gas and cannot be evaluated. If indicated MR a could b e performed. Dictated by: Zach HUITRON Interpreted: Nakia Sumner MD on 07/13/2017 at 12:29 Approved by: Nakia Sumner M.D. on 07/14/2017 at 10:10
--- NOTE | 2017-07-14 10:56 | PCM.PNMED ---
Subjective Date of Service Jul 14, 2017 Subjective Patient has been found to have some orthostatic hypotension currently. If he cannot drop in blood pressure when she goes from sitting to standing. Today's repeat of these values are pending at the time of this dictation. Denies headache. Denies chest pain or shortness of breath. Denies feeling lightheaded. Exam Vital Signs Vital Sign - Last Date Time Temp Pulse Resp B/P Pulse Ox O2 Delivery O2 Flow Rate FiO2 07/14/17 09:21 68 07/14/17 09:02 18 128/52 94 Room Air 07/14/17 04:25 36.7 Intake and Output 07/13/17 07/13/17 07/14/17 Cumulative From/Thru 15:00 23:00 07:00 07/12/17 15:42 - 07/13/17 18:51 Intake Total 600 ml 1678 ml Output Total 450 ml 750 ml Balance 150 ml 928 ml Intake Oral 600 ml 950 ml IV Total 728 ml Output Urine Total 450 ml 750 ml # Bowel Movements 0 0 Exam Constitutional: Elderly female in no acute distress Head: Normocephalic atraumatic Chest: Clear to auscultation Cor: Regular rate and rhythm S1-S2 with 2/6 systolic ejection murmur Abdomen: Soft nontender bowel sounds present Extremities: No pedal edema Psych: Mood and affect are appropriate Neuro: Alert and oriented 3, motor strength is intact bilaterally Skin: No rashes IVs and Medications Medications Reviewed: Medications were reviewed in detail Lab and Diagnostics Laboratory Tests 72 Hours Test 07/12/17 17:39 07/12/17 17:40 07/12/17 17:51 07/13/17 03:00 White Blood Count 6.0th/mm3 (3.8-10.1) Red Blood Count 3.20mil/mm3 (3.90-5.20) Hemoglobin 9.0g/dL (12.0-15.6) Hematocrit 28.3% (35.0-46.0) Mean Corpuscular Volume 88.4fL (81-100) Mean Corpuscular Hemoglobin 28.1pg (27.0-35.0) Mean Corpuscular Hemoglobin Concent 31.8% (32.0-37.0) Red Cell Distribution Width 14.3% (12.3-15.4) Platelet Count 185bil/L (150-400) Neutrophils (%) (Auto) 70.6% (40-74) Lymphocytes (%) (Auto) 20.2% (14-46) Monocytes (%) (Auto) 6.3% (4-12) Eosinophils (%) (Auto) 2.2% (0-5) Basophils (%) (Auto) 0.5% (0-3) Prothrombin Time 11.8sec (8.1-12.5) Prothromb Time International Ratio 1.10ratio Sodium Level 138mEq/L (134-144) Potassium Level 5.2mEq/L (3.5-5.2) Chloride Level 108mEq/L (97-108) Carbon Dioxide Level 17mmol/L (18-29) Blood Urea Nitrogen 56mg/dL (8-27) Creatinine 3.01mg/dL (0.57-1.00) Estimat Glomerular Filtration Rate 21mL/min (>59) Glucose Level 93mg/dL (60-99) Calcium Level 9.7mg/dL (8.5-10.1) Magnesium Level 1.5mg/dL (1.6-2.6) Total Bilirubin 0.4mg/dL (0.0-1.2) Aspartate Amino Transf (AST/SGOT) 13U/L (0-50) Alanine Aminotransferase (ALT/SGPT) 8U/L (0-32) Alkaline Phosphatase 76U/L (25-165) Troponin T < 0.010ug/L (0.0-0.011) Total Protein 7.3g/dL (6.4-8.4) Albumin 3.6g/dL (3.4-5.0) Hold Boland Top Tube Received (Received) Hold Urine Received (Received) Urine Color Yellow (YELLOW) Urine Appearance Clear (CLEAR,HAZY) Urine pH 5.0 (5.0-8.0) Urine Specific [place] 1.025 (1.003-1.035) Urine Protein Negativemg/dL (NEG,TRACE) Urine Glucose (UA) Negativemg/dL (NEGATIVE) Urine Ketones Negativemg/dL (NEGATIVE) Urine Occult Blood Negative (NEGATIVE) Urine Nitrite Negative (NEGATIVE) Urine Bilirubin Negative (NEGATIVE) Urine Urobilinogen Normalmg/dL (NORMAL) Urine Leukocyte Esterase Negative (NEGATIVE) Urine RBC 0-2/hpf (0-2) Urine WBC 0-5/hpf (0-5) Urine Epithelial Cells Moderate/hpf (NONE-MOD) Urine Crystals None seen (NONE SEEN) Urine Bacteria Few/hpf (NONE-FEW) Urine Hyaline Casts >20/lpf (NONE) Urine Granular Casts None seen (NONE SEEN) Urine Waxy Casts None seen (NONE SEEN) Urine Red Blood Cell Casts None seen (NONE SEEN) Urine White Blood Cell Casts None seen (NONE SEEN) Urine Mucus Present (None Seen) Urine Trichomonas None seen (NONE SEEN) Urine Yeast None (NONE SEEN) Urinalysis Comment None Urine Culture Reflexed Not indicated Test 07/13/17 05:06 07/13/17 12:48 07/14/17 05:05 White Blood Count 5.1th/mm3 (3.8-10.1) 6.1th/mm3 (3.8-10.1) Red Blood Count 2.97mil/mm3 (3.90-5.20) 3.00mil/mm3 (3.90-5.20) Hemoglobin 8.2g/dL (12.0-15.6) 8.4g/dL (12.0-15.6) Hematocrit 26.4% (35.0-46.0) 26.2% (35.0-46.0) Mean Corpuscular Volume 88.9fL (81-100) 87.3fL (81-100) Mean Corpuscular Hemoglobin 27.6pg (27.0-35.0) 28.0pg (27.0-35.0) Mean Corpuscular Hemoglobin Concent 31.1% (32.0-37.0) 32.1% (32.0-37.0) Red Cell Distribution Width 14.4% (12.3-15.4) 14.3% (12.3-15.4) Platelet Count 178bil/L (150-400) 173bil/L (150-400) Neutrophils (%) (Auto) 67.8% (40-74) 74.5% (40-74) Lymphocytes (%) (Auto) 21.1% (14-46) 16.9% (14-46) Monocytes (%) (Auto) 7.3% (4-12) 6.0% (4-12) Eosinophils (%) (Auto) 3.0% (0-5) 1.8% (0-5) Basophils (%) (Auto) 0.4% (0-3) 0.5% (0-3) Sodium Level 141mEq/L (134-144) 138mEq/L (134-144) 138mEq/L (134-144) Potassium Level 5.3mEq/L (3.5-5.2) 5.4mEq/L (3.5-5.2) 4.8mEq/L (3.5-5.2) Chloride Level 112mEq/L (97-108) 110mEq/L (97-108) 106mEq/L (97-108) Carbon Dioxide Level 17mmol/L (18-29) 15mmol/L (18-29) 17mmol/L (18-29) Blood Urea Nitrogen 63mg/dL (8-27) 60mg/dL (8-27) 56mg/dL (8-27) Creatinine 3.19mg/dL (0.57-1.00) 2.96mg/dL (0.57-1.00) 2.95mg/dL (0.57-1.00) Glucose Level 111mg/dL (60-99) 124mg/dL (60-99) 124mg/dL (60-99) Calcium Level 9.0mg/dL (8.5-10.1) 9.0mg/dL (8.5-10.1) 9.3mg/dL (8.5-10.1) Phosphorus Level 3.3mg/dL (2.5-4.9) Magnesium Level 2.1mg/dL (1.6-2.6) Iron Level 30ug/dL (35-150) Total Iron Binding Capacity 195ug/dL (250-450) Percent Iron Saturation 15%sat (15-50) Unsaturated Iron Binding 164.7ug/dL Ferritin 63ng/mL (13-150) Albumin 3.3g/dL (3.4-5.0) 3.4g/dL (3.4-5.0) Vitamin B12 Level 546pg/mL (211-946) Folate 9.7ng/mL (>3.0) Thyroid Stimulating Hormone (TSH) 3.920uIU/mL (0.450-4.500) Free Thyroxine 1.32ng/dL (0.82-1.77) Estimat Glomerular Filtration Rate 22mL/min (>59) 22mL/min (>59) Total Bilirubin 0.4mg/dL (0.0-1.2) Aspartate Amino Transf (AST/SGOT) 17U/L (0-50) Alanine Aminotransferase (ALT/SGPT) 7U/L (0-32) Alkaline Phosphatase 72U/L (25-165) Total Protein 6.8g/dL (6.4-8.4) Result Diagram: 07/14/17 0505 07/14/17 0505 X-Rays, CTs and MRIs PROCEDURE: US RENAL WITH ARTERIES DUPLEX DOPPLER SONOGRAM, LIMITED INDICATIONS: ANGELA TECHNIQUE: Real time scanning was performed of both kidneys, followed by Color and pulsed Doppler interrogation of the renal vessels. COMPARISON: None. FINDINGS: Aortic peak systolic velocity: 64 cm/s. Right side: Pardo-scale imaging: Kidney is 7.5 cm long; renal cortical thickness is 3.7 cm. No hydronephrosis. No nephrolithiasis. Renal cortex is increased in echogenicity. No suspicious solid renal masses. 8mm cortical renal cyst involving the superior pole. Proximal renal artery peak systolic velocity: Not visualized. Mid renal artery peak systolic velocity: Not visualized. Distal renal artery peak systolic velocity: Visualized. Renal vein: Patent, without thrombus. Left side: Pardo-scale imaging: Kidney is 10.0 cm long; renal cortical thickness is 1.1 cm. No hydronephrosis. No nephrolithiasis. Renal cortex is normal in echogenicity. No suspicious solid renal masses. Proximal renal artery peak systolic velocity: Not visualized. Mid-renal artery peak systolic velocity: Not visualized. Distal renal artery peak systolic velocity: Not visualized. Renal vein: Patent, without thrombus. IMPRESSION: 1. Right renal atrophy present with renal cortical thinning and increased renal cortical echogenicity consistent with medical renal disease. 2. Grossly normal appearance of the left kidney. 3. Renal arteries obscured by overlying bowel gas and cannot be evaluated. If indicated MR a could be performed. Dictated by: Zach HUITRON Interpreted: Nakia Sumner MD on 07/13/2017 at 12: 29 Approved by: Nakia Sumner M.D. on 07/14/2017 at 10:10 PROCEDURE: CT BRAIN WITHOUT CONTRAST ([id number]) INDICATIONS: hypertension, resolved headache IMPRESSION: No acute intracranial process. Dictated by: Kali Mercado M.D. on 07/12/2017 at 18:30 Cardiac Echo Impressions Echocardiogram Report Name: GIOVANI MARAVILLA EStudy Date: 07/13/2017 Height: 25 in Hospital Exam Location: [facility] Weight: 304 lb Gender: Female BSA: 1.2 m2 : 1935 Age: 82 yrs BP: 210/78 mmHg Reason For Study: Hypertension Ordering Physician: HOSPITALIST [facility] Performed By: Aurelio Silveira Referring Physician: Mahesh Vega Interpretation Summary Normal sinus rhythm. Normal LV size; mild concentric LVH; normal wall motion and LV systolic function. EF is 60-65%; stage I diastolic dysfunction. Severe biatrial enlargement. Aortic sclerosis without stenosis; mild associated aortic regurgitation. There is moderate MAC; mitral valve leaflets are normal with trace associated MR. Compared to prior study performed 05/08/2016 no significant changes have occurred. Name: GIOVANI MARAVILLA Study Date: 06/18/2014 Height: 64 in Hospital Exam Location: [facility] Weight: 159 lb Gender: Female BSA: 1.8 meters2 : 1935 Age: 79 yrs BP: 129/61 mmHg Reason For Study: CVA Ordering Physician: [facility] Hospitalist Performed By: Chana Mancilla Referring Physician: [place] Ahuja Interpretation Summary The left ventricle is normal in size. Left ventricular systolic function is normal without focal wall motion abnormalities. The ejection fraction is estimated to be 60-65%. The right ventricle is normal in size and function. The right ventricular systolic pressure is estimated at 32 mmHg assuming a right atrial pressure of 3 mm Hg. The left atrium is moderately dilated. Right atrial size is normal. There is no significant valvular heart disease. The aortic root is normal size. There is no obvious cardiac source of embolus noted on this transthoracic echocardiogram. Follow-up with a CHRISTINE is suggested if cardiac source is still suspected. Assessment & Plan Patient is an 82-year-old right-handed female with a medical history significant for peripheral artery disease, chronic kidney disease stage IV, hypertension, dyslipidemia, and history of TIA presented headaches, admitted for hypertensive emergency. Hypertensive emergency -Has ANGELA, high BP possibly contributed to headache -CT head negative -Labetalol 20 mg IV push given in the ED -Restart home labetalol 400 mg 3 times a day -Have added amlodipine 5 mg by mouth daily and using Klonopin being 0.1 mg by mouth every hour when necessary systolic blood pressure greater than 180 and diastolic blood pressure greater than 95. -Goal BP lower by 20-25% from 200 mmHg within the next 8 hours. -Appreciate nephrology consultation -Professor Of Spanish Francisco Juan has been consulted and is following -Check renal ultrasound and renal artery doppler exam showed no acute abnormalities however unable to visualize renal artery secondary to overlying bowel gas. I defer to nephrology regarding their recommendation of checking an MR if needed. -Blood pressure is markedly improved so we will go ahead and DC nitro paste and continue to monitor supine ,sitting and standing blood pressures to make sure there are no orthostatic changes prior to discharging patient home Acute on chronic kidney injury -Baseline creatinine 2.6-2.7 -Likely secondary to elevated blood pressure -Holding chlorthalidone and lisinopril -We will DC IV fluid hydration -Give a dose of IV Lasix 40 mg IV on afternoon of July 13 for better blood pressure control -Not much change in BUN and creatinine and GFR on morning of July 14. Hypomagnesemia, acute, present on admission -Replace per protocol Left lower lobe pneumonia, acute, present on admission -Patient was diagnosed with LLL pneumonia and started on by mouth Levaquin 2016 -Continue taking Levaquin for 10 days course Dyslipidemia, chronic, present on admission -Restart home atorvastatin GERD, chronic, present on admission -Hold home ranitidine as pharmacy does not carry this medication. -Start Famotidine 20 mg twice a day CODE STATUS full code DVT prophylaxis heparin Patient Status: Patient is admitted under observation status with expected length of stay LESS than 2 midnights due to severity of presenting symptoms, risk of adverse event, and complexity of treatment plan. GI Prophylaxis: H2 troy VTE Prophylaxis: Sub-Q Heparin (Unfractionated) Resuscitation Status: CPR: Attempt Resuscitation Time spent 30 minutes Kindra Braun MD Jul 14, 2017 10:56
--- NOTE | 2017-07-14 12:40 | PCM.DIMED ---
Discharge Instructions Date of Service Jul 14, 2017 Dates of Hospitalization Jul 12, 2017 at 18:47 Discharge Diagnosis Discharge Diagnosis Hypertensive urgency Diet Discharge Diet: Low fat, Low Sodium Activity Discharge Activity: Other (progress as tolerated) Call your provider Call your provider for: Fever or Chills, Shortness of breath, Bleeding, Chest pain, Vomitting, Excessive diarrhea, Weakness (unilateral) Patient Instructions Follow-up Provider: Francisco Armstrong MD Follow-up with PCP in: Other (as already scheduled) Provider: Nandini Cotter Follow-up in: Other (4-5 days, sooner if problems) Kindra Braun MD Jul 14, 2017 12:40
[2017-07-14] MEDS ORDERED: LABE200T PO (12:44)
[2017-07-14] MEDS ORDERED: AMLO2.5T PO (12:44)
[2017-07-14] MEDS ORDERED: CLON1PAT2 TOPICAL (12:44)
[2017-07-14] MEDS ORDERED: DOXA2TAB52 PO (12:44)
--- NOTE | 2017-07-14 12:48 | PCM.PNNEPH ---
Subjective Date of Service Jul 14, 2017 Subjective BP has improved but orthostatic noted. She has felt better. She has no CP/SOB/dizziness/tremors. Exam Vital Signs Vital Sign - Last Date Time Temp Pulse Resp B/P Pulse Ox O2 Delivery O2 Flow Rate FiO2 07/14/17 12:11 66 125/64 07/14/17 12:09 35.9 20 94 Room Air Intake and Output 07/13/17 07/13/17 07/14/17 Cumulative From/Thru 15:00 23:00 07:00 07/12/17 15:42 - 07/13/17 18:51 Intake Total 600 ml 1678 ml Output Total 450 ml 750 ml Balance 150 ml 928 ml Intake Oral 600 ml 950 ml IV Total 728 ml Output Urine Total 450 ml 750 ml # Bowel Movements 0 0 Exam General appearance: Awake, alert, oriented x3. No acute distress. HEENT: Mild pallor. No jaundice. No JVD. No lymphadenopathy. No thyroid enlargement. Heart: Regular rhythm. Normal S1, S2. Soft systolic murmur noted. Lungs: Clear to auscultation bilaterally. No wheezing. No rhonchi. Abdomen: Soft, active bowel sounds. Nontender. Nondistended. No hepatosplenomegaly. Extremities: No edema, cyanosis, or clubbing of fingers. Lab and Diagnostics Result Diagram: 07/14/17 0505 07/14/17 0505 X-Rays, CTs and MRIs PROCEDURE: US RENAL WITH ARTERIES DUPLEX DOPPLER SONOGRAM, LIMITED INDICATIONS: ANGELA TECHNIQUE: Real time scanning was performed of both kidneys, followed by Color and pulsed Doppler interrogation of the renal vessels. COMPARISON: None. FINDINGS: Aortic peak systolic velocity: 64 cm/s. Right side: Pardo-scale imaging: Kidney is 7.5 cm long; renal cortical thickness is 3.7 cm. No hydronephrosis. No nephrolithiasis. Renal cortex is increased in echogenicity. No suspicious solid renal masses. 8mm cortical renal cyst involving the superior pole. Proximal renal artery peak systolic velocity: Not visualized. Mid renal artery peak systolic velocity: Not visualized. Distal renal artery peak systolic velocity: Visualized. Renal vein: Patent, without thrombus. Left side: Pardo-scale imaging: Kidney is 10.0 cm long; renal cortical thickness is 1.1 cm. No hydronephrosis. No nephrolithiasis. Renal cortex is normal in echogenicity. No suspicious solid renal masses. Proximal renal artery peak systolic velocity: Not visualized. Mid-renal artery peak systolic velocity: Not visualized. Distal renal artery peak systolic velocity: Not visualized. Renal vein: Patent, without thrombus. IMPRESSION: 1. Right renal atrophy present with renal cortical thinning and increased renal cortical echogenicity consistent with medical renal disease. 2. Grossly normal appearance of the left kidney. 3. Renal arteries obscured by overlying bowel gas and cannot be evaluated. If indicated MR a could be performed. Dictated by: Zach Patterson RRA Interpreted: Nakia Sumner MD on 07/13/2017 at 12: 29 Approved by: Nakia Sumner M.D. on 07/14/2017 at 10:10 PROCEDURE: CT BRAIN WITHOUT CONTRAST ([id number]) INDICATIONS: hypertension, resolved headache IMPRESSION: No acute intracranial process. Dictated by: Kali Mercado M.D. on 07/12/2017 at 18:30 Cardiac Echo Impressions Echocardiogram Report Name: GIOVANI MARAVILLA EStudy Date: 07/13/2017 Height: 25 in Hospital Exam Location: [facility] Weight: 304 lb Gender: Female BSA: 1.2 m2 : 1935 Age: 82 yrs BP: 210/78 mmHg Reason For Study: Hypertension Ordering Physician: HOSPITALIST [facility] Performed By: Aurelio Silveira Referring Physician: Mahesh Vega Interpretation Summary Normal sinus rhythm. Normal LV size; mild concentric LVH; normal wall motion and LV systolic function. EF is 60-65%; stage I diastolic dysfunction. Severe biatrial enlargement. Aortic sclerosis without stenosis; mild associated aortic regurgitation. There is moderate MAC; mitral valve leaflets are normal with trace associated MR. Compared to prior study performed 05/08/2016 no significant changes have occurred. Name: GIOVANI MARAVILLA E Study Date: 06/18/2014 Height: 64 in Hospital Exam Location: [facility] Weight: 159 lb Gender: Female BSA: 1.8 meters2 : 1935 Age: 79 yrs BP: 129/61 mmHg Reason For Study: CVA Ordering Physician: [facility] Hospitalist Performed By: Chana Mancilla Referring Physician: [place] Ahuja Interpretation Summary The left ventricle is normal in size. Left ventricular systolic function is normal without focal wall motion abnormalities. The ejection fraction is estimated to be 60-65%. The right ventricle is normal in size and function. The right ventricular systolic pressure is estimated at 32 mmHg assuming a right atrial pressure of 3 mm Hg. The left atrium is moderately dilated. Right atrial size is normal. There is no significant valvular heart disease. The aortic root is normal size. There is no obvious cardiac source of embolus noted on this transthoracic echocardiogram. Follow-up with a CHRISTINE is suggested if cardiac source is still suspected. Plan Impression ASSESSMENT: 1. Hypertensive emergency with evidence of acute kidney injury. - improving. - orthostatic hypotension likely due to high dose beta-troy and nitropatch - labetalol decreased to 200 mg TID. 2. 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 3. Hyperkalemia resolved. 4. Hypomagnesemia secondary to [place] and chlorthalidone. 5. Severe left renal artery stenosis status post angioplasty and stenting. 6. Anemia of chronic kidney disease. Plan: Continue labetalol 200 mg TID, norvasc 2.5 mg daily, clonidine patch 0.2 mg/24 hr and doxazosin 2 mg HS. Xanax as needed. Hold diuretics and hold RAAS blockade. F/u with renal in 1-2 weeks. Keep BP log. Francisco Armstrong MD Jul 14, 2017 12:48
--- NOTE | 2017-07-14 12:50 | PCM.DC.MED ---
Discharge Summary Date of Service Jul 14, 2017 Dates of Hospitalization Date of Hospital Admission Jul 12, 2017 at 18:47 Date of Discharge: Jul 14, 2017 Providers: Admitting Physician: Marquez Reyes MD Primary Care Physician: Nandini Cotter Attending Physician: Kindra Braun MD Diagnosis at Time of Discharge Diagnosis at Time of Discharge Hypertensive urgency Consultations Nephrology Procedures XRay, CTs & MRIs PROCEDURE: US RENAL WITH ARTERIES DUPLEX DOPPLER SONOGRAM, LIMITED INDICATIONS: ANGELA TECHNIQUE: Real time scanning was performed of both kidneys, followed by Color and pulsed Doppler interrogation of the renal vessels. COMPARISON: None. FINDINGS: Aortic peak systolic velocity: 64 cm/s. Right side: Pardo-scale imaging: Kidney is 7.5 cm long; renal cortical thickness is 3.7 cm. No hydronephrosis. No nephrolithiasis. Renal cortex is increased in echogenicity. No suspicious solid renal masses. 8mm cortical renal cyst involving the superior pole. Proximal renal artery peak systolic velocity: Not visualized. Mid renal artery peak systolic velocity: Not visualized. Distal renal artery peak systolic velocity: Visualized. Renal vein: Patent, without thrombus. Left side: Pardo-scale imaging: Kidney is 10.0 cm long; renal cortical thickness is 1.1 cm. No hydronephrosis. No nephrolithiasis. Renal cortex is normal in echogenicity. No suspicious solid renal masses. Proximal renal artery peak systolic velocity: Not visualized. Mid-renal artery peak systolic velocity: Not visualized. Distal renal artery peak systolic velocity: Not visualized. Renal vein: Patent, without thrombus. IMPRESSION: 1. Right renal atrophy present with renal cortical thinning and increased renal cortical echogenicity consistent with medical renal disease. 2. Grossly normal appearance of the left kidney. 3. Renal arteries obscured by overlying bowel gas and cannot be evaluated. If indicated MR a could be performed. Dictated by: Zach Patterson [facility] Interpreted: Nakia Sumner MD on 07/13/2017 at 12: 29 Approved by: Nakia Sumner M.D. on 07/14/2017 at 10:10 PROCEDURE: CT BRAIN WITHOUT CONTRAST ([id number]) INDICATIONS: hypertension, resolved headache IMPRESSION: No acute intracranial process. Dictated by: Kali Mercado M.D. on 07/12/2017 at 18:30 Cardiac Echo Impression Echocardiogram Report Name: GIOVANI MARAVILLA EStudy Date: 0 07/13/2017 Height: 25 in Hospital Exam Location: [facility] Weight: 304 lb Gender: Female BSA: 1.2 m2 : 1935 Age: 82 yrs BP: 210/78 mmHg Reason For Study: Hypertension Ordering Physician: HOSPITALIST [facility] Performed By: Aurelio Silveira Referring Physician: Mahesh Vega Interpretation Summary Normal sinus rhythm. Normal LV size; mild concentric LVH; normal wall motion and LV systolic function. EF is 60-65%; stage I diastolic dysfunction. Severe biatrial enlargement. Aortic sclerosis without stenosis; mild associated aortic regurgitation. There is moderate MAC; mitral valve leaflets are normal with trace associated MR. Compared to prior study performed 05/08/2016 no significant changes have occurred. Name: GIOVANI MARAVILLA Study Date: 06/18/2014 Height: 64 in Hospital Exam Location: [facility] Weight: 159 lb Gender: Female BSA: 1.8 meters2 : 1935 Age: 79 yrs BP: 129/61 mmHg Reason For Study: CVA Ordering Physician: [facility] Hospitalist Performed By: Chana Mancilla Referring Physician: Kenya Ahuja Interpretation Summary The left ventricle is normal in size. Left ventricular systolic function is normal without focal wall motion abnormalities. The ejection fraction is estimated to be 60-65%. The right ventricle is normal in size and function. The right ventricular systolic pressure is estimated at 32 mmHg assuming a right atrial pressure of 3 mm Hg. The left atrium is moderately dilated. Right atrial size is normal. There is no significant valvular heart disease. The aortic root is normal size. There is no obvious cardiac source of embolus noted on this transthoracic echocardiogram. Follow-up with a CHRISTINE is suggested if cardiac source is still suspected. Brief History Patient carries a medical history significant for TIA, hypertension, hyperlipidemia, chronic kidney disease stage IV, and severe left renal stenosis status post stenting. Patient always had a concern for hypertension, reported bilateral posterior headache and increasing tremors started this morning. Patient went to her client delivery manager for evaluation and found severe hypertension blood pressure 200/90 , thus, presented to the ED. , patient denies any headaches, dizziness, unilateral weakness, tingling, numbness, palpitation, shortness of breath, chest pain, or nausea or vomiting. Patient is noted to have mild right-sided facial droop, however this is more an inflammation as she has been irritating her left upper lips and due to dry mouth. Patient also observed to have mild dysarthria, however family noted that this is chronic. In the ED, patient blood pressure was 201/63. With labs creatinine 3.01, baseline 2.7-2.8. No elevated troponin, EKG unremarkable. Patient was thus given 2 doses of 20 mg of labetalol IV push. Due to headaches patient also had a CT head done, readings negative for any acute bleeding. Patient admitted for hypertensive emergency. Hospital Course Patient is an 82-year-old right-handed female with a medical history significant for peripheral artery disease, chronic kidney disease stage IV, hypertension, dyslipidemia, and history of TIA presented headaches, admitted for hypertensive emergency. Hypertensive emergency -Has ANGELA, high BP possibly contributed to headache -CT head negative -Labetalol 20 mg IV push given in the ED -Restart home labetalol 400 mg 3 times a day -Have added amlodipine 5 mg by mouth daily and using Klonopin being 0.1 mg by mouth every hour when necessary systolic blood pressure greater than 180 and diastolic blood pressure greater than 95. -Goal BP lower by 20-25% from 200 mmHg within the next 8 hours. -Appreciate nephrology consultation -Studio Engineer Francisco Juan has been consulted and is following -Check renal ultrasound and renal artery doppler exam showed no acute abnormalities however unable to visualize renal artery secondary to overlying bowel gas. I defer to nephrology regarding their recommendation of checking an MR if needed. -Blood pressure is markedly improved so we will go ahead and DC nitro paste and continue to monitor supine ,sitting and standing blood pressures to make sure there are no orthostatic changes prior to discharging patient home -Nephrology is seen the patient and felt that she was fine for discharge she still remains a bit orthostatic but is asymptomatic with this. -On discharge we will decrease the amlodipine to 2.5 mg by mouth daily and decrease the doxazosin to 2 mg at at bedtime daily -We will continue to hold the lisinopril and chlorthalidone given her kidney function -We will also continue with Catapres patch #2 topically every 7 days Acute on chronic kidney injury -Baseline creatinine 2.6-2.7 -Likely secondary to elevated blood pressure -Holding chlorthalidone and lisinopril -We will DC IV fluid hydration -Give a dose of IV Lasix 40 mg IV on afternoon of July 13 for better blood pressure control -Not much change in BUN and creatinine and GFR on morning of July 14. Hypomagnesemia, acute, present on admission -Replace per protocol Left lower lobe pneumonia, acute, present on admission -Patient was diagnosed with LLL pneumonia and started on by mouth Levaquin 2016 -Continue taking Levaquin for 10 days course Dyslipidemia, chronic, present on admission -Restart home atorvastatin GERD, chronic, present on admission -Hold home ranitidine as pharmacy does not carry this medication. -Start Famotidine 20 mg twice a day CODE STATUS full code DVT prophylaxis heparin Patient Status: Patient is admitted under observation status with expected length of stay LESS than 2 midnights due to severity of presenting symptoms, risk of adverse event, and complexity of treatment plan. Exam Vital Signs (Last) Date Time Temp Pulse Resp B/P Pulse Ox O2 Delivery O2 Flow Rate FiO2 07/14/17 12:11 66 125/64 07/14/17 12:09 35.9 20 94 Room Air Test 07/12/17 17:39 07/12/17 17:40 07/12/17 17:51 07/13/17 03:00 Prothrombin Time 11.8sec (8.1-12.5) Prothromb Time International Ratio 1.10ratio Troponin T < 0.010ug/L (0.0-0.011) Hold Boland Top Tube Received (Received) Hold Urine Received (Received) Urine Color Yellow (YELLOW) Urine Appearance Clear (CLEAR,HAZY) Urine pH 5.0 (5.0-8.0) Urine Specific [place] 1.025 (1.003-1.035) Urine Protein Negativemg/dL (NEG,TRACE) Urine Glucose (UA) Negativemg/dL (NEGATIVE) Urine Ketones Negativemg/dL (NEGATIVE) Urine Occult Blood Negative (NEGATIVE) Urine Nitrite Negative (NEGATIVE) Urine Bilirubin Negative (NEGATIVE) Urine Urobilinogen Normalmg/dL (NORMAL) Urine Leukocyte Esterase Negative (NEGATIVE) Urine RBC 0-2/hpf (0-2) Urine WBC 0-5/hpf (0-5) Urine Epithelial Cells Moderate/hpf (NONE-MOD) Urine Crystals None seen (NONE SEEN) Urine Bacteria Few/hpf (NONE-FEW) Urine Hyaline Casts >20/lpf (NONE) Urine Granular Casts None seen (NONE SEEN) Urine Waxy Casts None seen (NONE SEEN) Urine Red Blood Cell Casts None seen (NONE SEEN) Urine White Blood Cell Casts None seen (NONE SEEN) Urine Mucus Present (None Seen) Urine Trichomonas None seen (NONE SEEN) Urine Yeast None (NONE SEEN) Urinalysis Comment None Urine Culture Reflexed Not indicated Test 07/13/17 05:06 07/14/17 05:05 Phosphorus Level 3.3mg/dL (2.5-4.9) Magnesium Level 2.1mg/dL (1.6-2.6) Iron Level 30ug/dL (35-150) Total Iron Binding Capacity 195ug/dL (250-450) Percent Iron Saturation 15%sat (15-50) Unsaturated Iron Binding 164.7ug/dL Ferritin 63ng/mL (13-150) Vitamin B12 Level 546pg/mL (211-946) Folate 9.7ng/mL (>3.0) Thyroid Stimulating Hormone (TSH) 3.920uIU/mL (0.450-4.500) Free Thyroxine 1.32ng/dL (0.82-1.77) White Blood Count 6.1th/mm3 (3.8-10.1) Red Blood Count 3.00mil/mm3 (3.90-5.20) Hemoglobin 8.4g/dL (12.0-15.6) Hematocrit 26.2% (35.0-46.0) Mean Corpuscular Volume 87.3fL (81-100) Mean Corpuscular Hemoglobin 28.0pg (27.0-35.0) Mean Corpuscular Hemoglobin Concent 32.1% (32.0-37.0) Red Cell Distribution Width 14.3% (12.3-15.4) Platelet Count 173bil/L (150-400) Neutrophils (%) (Auto) 74.5% (40-74) Lymphocytes (%) (Auto) 16.9% (14-46) Monocytes (%) (Auto) 6.0% (4-12) Eosinophils (%) (Auto) 1.8% (0-5) Basophils (%) (Auto) 0.5% (0-3) Sodium Level 138mEq/L (134-144) Potassium Level 4.8mEq/L (3.5-5.2) Chloride Level 106mEq/L (97-108) Carbon Dioxide Level 17mmol/L (18-29) Blood Urea Nitrogen 56mg/dL (8-27) Creatinine 2.95mg/dL (0.57-1.00) Estimat Glomerular Filtration Rate 22mL/min (>59) Glucose Level 124mg/dL (60-99) Calcium Level 9.3mg/dL (8.5-10.1) Total Bilirubin 0.4mg/dL (0.0-1.2) Aspartate Amino Transf (AST/SGOT) 17U/L (0-50) Alanine Aminotransferase (ALT/SGPT) 7U/L (0-32) Alkaline Phosphatase 72U/L (25-165) Total Protein 6.8g/dL (6.4-8.4) Albumin 3.4g/dL (3.4-5.0) Discharge Medications Discharge Medications Amlodipine (Amlodipine) 2.5 Mg Tablet 2.5 MG PO DAILY Prescribed by: KINDRA BRAUN MD Aspirin (Aspirin) 81 Mg Tablet 81 MG PO QAM (Reported) Atorvastatin (Lipitor) 20 Mg Tablet 20 MG PO HS (Reported) Clonidine 0.2 mg/day Patch (Catapres TTS-2) 1 Each Patch 1 PATCH TOPICAL Q7D Prescribed by: KINDRA BRAUN MD Doxazosin (Cardura) 2 Mg Tablet 2 MG PO DAILY Prescribed by: KINDRA BRAUN MD Ferrous Sulfate (Ferrous Sulfate) 325 Mg Tablet 325 MG PO DAILY (Reported) Labetalol (Labetalol) 200 Mg Tablet 200 MG PO TID Prescribed by: KINDRA BRAUN MD Levofloxacin (Levofloxacin) 750 Mg Tablet 750 MG PO DAILY (Reported) Multivitamin (Multivitamins) 1 Each Capsule 1 EACH PO DAILY (Reported) Patiromer Calcium Sorbitex (Veltassa) 8.4 Gram Powd.pack 8.4 GM PO QAM (Reported ) Ranitidine (Ranitidine) 150 Mg Capsule 150 MG PO QAM (Reported) As needed Acetaminophen (Acetaminophen) 325 Mg Tablet 650 MG PO Q4H PRN PRN For Fever ( Reported) Followup Plan Discharge Diet: Low fat, Low Sodium Discharge Activity: Other (progress as tolerated) Follow-up Provider: Francisco Armstrong MD Follow-up with PCP in: Other (as already scheduled) Provider: Nandini Cotter Follow-up in: Other (4-5 days, sooner if problems) Kindra Braun MD Jul 14, 2017 12:50
[2017-07-14] MEDS ORDERED: CLON1PAT2 TRANSDERM (12:51)
--- NOTE | 2017-07-14 13:38 | NUR ---
Social Work Note: Discharge Data& Assessment: Per MD in multidisciplinary rounds, pt is medically ready to discharge. Maddy Garner is a 82 year old female admitted on 07/12/2017 under observation status for severe HTN and ANGELA. Per MD pt is medically improved and ready to discharge. CORPORATE INTERN met with pt and pt at bedside to confirm discharge plan and assess for any unmet needs. Pt is ambulating independently in her room. Pt transporting pt home. Md does not identify any concerns for pt capacity for self care. Pt and pt deny any other needs. No other discharge needs or MD orders identified. Plan: Per pt is medically ready to discharge home via POV. Pt and pt deny any other needs. No other discharge needs or MD orders identified. RODNEY Desir
[2017-07-14] MEDS ORDERED: Nitroglycerin 2% 1 Gm Ointment TOPICAL SCH (14:30)
--- NOTE | 2017-07-14 16:28 | NUR ---
discharge Patient discharge to home with all belongings at 1553. Explained to patient new medications (amlodipine, clonidine, doxazasin, labatalol), when next medications are due and discharge instructions. Dc'd IV intact. Dc'd telemetry. Vitals stable. patient left floor via wheelchair accompanied by and FULL TIME PARAMEDIC with no signs of distress.
== END 2017-07-14 15:32 | disposition home or self-care (01) ==
LOC: SED 15:33 → MPC 18:47
PROVIDERS: ADMIT Hospitalist; ATTEND Specialist
DX: I16.0 Hypertensive urgency (principal); E83.42 Hypomagnesemia; K21.9 Gastro-esophageal reflux disease without esophagitis; J20.9 Acute bronchitis, unspecified; I12.9 Hypertensive chronic kidney disease with stage 1 through stage 4 chronic kidney disease, or unspecified chronic kidney disease; R51 Headache; N17.9 Acute kidney failure, unspecified; E78.5 Hyperlipidemia, unspecified; N18.4 Chronic kidney disease, stage 4 (severe); I70.1 Atherosclerosis of renal artery; I73.9 Peripheral vascular disease, unspecified; Z86.73 Personal history of transient ischemic attack (TIA), and cerebral infarction without residual deficits; Z79.82 Long term (current) use of aspirin; Z79.899 Other long term (current) drug therapy

== ENCOUNTER 2017-07-20 06:45 | Emergency (ER) | payer MEDICARE ==
[~2017-07-20] VITALS: Ht 162.6 cm; Wt 61.4 kg
[~2017-07-20 06:45] MED LIST changes: +ACET325T51 PO; +AMLO2.5T PO; -AMLO5TAB2 PO; +CLON1PAT2 TRANSDERM; +DOXA2TAB52 PO; +FERR-83 PO; -IRON1TAB97 PO; +LABE200T PO; -LABE300T PO; +LEVO750T39 PO; -LOSA50TA37 PO; +PATI8.4P PO
[2017-07-20 06:59] VITALS: BP 185/72; RESP 14; O2SAT 95
--- NOTE | 2017-07-20 07:24 | ED.REPORT ---
HPI-Sore Throat ONLY HPI/PE done Jul 20, 2017 ED Provider: Fox Sanchez MD Patient is an 82 year old female with a hx of HTN who presents to the ED complaining of mouth and throat pain onset one week ago. She states that her symptoms feel similar to when she had thrush before which was treated with Lortab and Diflucan. Patient was seen at [facility] yesterday and was given a prescription without relief. Associated symptoms include white spots on her tongue. She denies fevers, chills, chest pain, cough, or any other symptoms. She was on Levaquin recently for a respiratory infection. She stopped taking it 2 days ago. Nursing Notes Stated Complaint: THRUSH/PAINFUL MOUTH AND THROAT Chief Complaint: ENT & Mouth Nursing Notes Reviewed: Yes ([employer], [employer] not reconciled) Allergies: Coded Allergies: azithromycin (Verified Adverse Reaction, Intermediate, N/V, 07/12/17) Scheduled Amlodipine (Amlodipine) 2.5 Mg Tablet 2.5 MG PO DAILY Aspirin (Aspirin) 81 Mg Tablet 81 MG PO QAM Atorvastatin (Lipitor) 20 Mg Tablet 20 MG PO HS Clonidine 0.2 mg/day Patch (Catapres TTS-2) 1 Each Patch 1 PATCH TRANSDERM WEEKLY Doxazosin (Cardura) 2 Mg Tablet 2 MG PO DAILY Ferrous Sulfate (Ferrous Sulfate) 325 Mg Tablet 325 MG PO DAILY Labetalol (Labetalol) 200 Mg Tablet 200 MG PO TID Levofloxacin (Levofloxacin) 750 Mg Tablet 750 MG PO DAILY Multivitamin (Multivitamins) 1 Each Capsule 1 EACH PO DAILY Nystatin (Nystatin) 500,000 Unit Tablet 500,000 UNIT PO QID Patiromer Calcium Sorbitex (Veltassa) 8.4 Gram Powd.pack 8.4 GM PO QAM Ranitidine (Ranitidine) 150 Mg Capsule 150 MG PO QAM Scheduled PRN Acetaminophen (Acetaminophen) 325 Mg Tablet 650 MG PO Q4H PRN PRN For Fever Hydrocodone/Acetaminophen (Lortab 10 mg-300 mg/15 ml Elxr) 473 Ml Solution 10 ML PO Q4 PRN PRN For Pain Lidocaine HCl (Lidocaine HCl Viscous) 20 Mg/1 Ml Solution 100 MG MM 3-4x/day PRN PRN For Pain General Time Seen by MD: 07:18 Chief Complaint Other (Mouth and throat pain ) Hx Obtained From: Patient Arrived By: Walk-in Onset Occurred: 1 week ago Symptom Duration: Since onset Location: : Tongue Quality: Painful Context: Immunization Status General: Unknown Recent Healthcare: Recent doctor visit Similar Sx Previous: Yes Past Medical History Past Medical History Notes: She is admitted July 12 2 08/03/2017 for hypertensive urgency Echocardiogram July 13, EF 60-65%, stage I diastolic dysfunction, mild concentric LVH Treated with a course of Levaquin for left lower lobe pneumonia, 10 day course Past Medical History 1. Severe left renal artery stenosis. 2. Chronic kidney disease, stage 4. 1. Atrophic right kidney. 2. Mild aortic stenosis. 3. Left internal carotid artery stenosis. 4. Hypertension. 5. Hyperlipidemia with target LDL less than 70 mg/dL. 6. Snoring. 7. Peripheral arterial disease. Past Surgical History Cholecystectomy Ylnn's diverticulum Left total knee replacement Left renal stent Reports: Cataract surgery Smoking History Never Smoker Social History Alcohol Use: "Social" Drug Use: Denies drug use Other Social History: Good social support Ambulatory Status Independent Review of Systems Review of Systems Note: +white spots on tongue Constitutional: Denies: Chills, Fever Ears / Nose / Throat: Reports: Mouth pain, Throat pain Respiratory: Denies: Non-productive cough Complete sys rev & neg: except as marked. Cardiovascular: Denies: Chest pain Physical Exam Initial Vital Signs Vital Signs (First) Date Time Temp Pulse Resp B/P Pulse Ox O2 Delivery O2 Flow Rate FiO2 07/20/17 06:59 37.7 78 14 185/72 95 Room Air Initial VS: Reviewed, Vital signs abnormal (HTN) Head / Eyes: Atraumatic, Normocephalic Respiratory: No respiratory distress Skin: Warm, Dry Neurologic: Alert, Oriented, Nonfocal Psychiatric: Mood/affect normal, Behavior normal, Normal thought content General/Constitutional: Awake, Alert Fatigued ENT: Airway patent pharyngeal erythema present. Voice normal. No airway obstruction. A few white spots present but not overwhelming diffuse thrust. Neck: Atraumatic, Full range of motion, No adenopathy Upper Extremity / MS: Atraumatic Re-Eval/Medical Decision Med Decision/Clinical Course This is an 82-year-old female presents complaining of a sore throat concern for thrush. She has had thrush occur following a course of Antibiotics in the past , and is just completing a course of Levaquin for possible pneumonia. She reports her cough and rest her symptoms have completely resolved, but over the past 2 days she developed the white spots, sore throat, that she had the previous episode of thrush. She reports being seen in clinic yesterday but given Coricidin, and was not given any antifungals, and she reports last time she required some nystatin, plus a little bit of Lortab. She has no additional complaints. On exam she is uncomfortable, but not in distress. She does not appear toxic or acutely ill. She is him for go erythema, and a few white spots such that thrush is in the differential. Her airway is patent, voice is normal, the snow cervical adenopathy, no meningismus. No signs of a retropharyngeal abscess or other more severe pathology. History and exam are concerning enough that I think appeared treatment is reasonable. The patient seems more lidocaine as well as starting dose of Diflucan and nystatin in the ED, is being discharged on same. She has stopped the levofloxacin. Routine return precautions reviewed. Patient's discharge in improved condition. Source of Hx: Old records Re-Evaluation/Progress : Time of Eval: 07:56 Re-Evaluation/Progress Note: Discussed plan for discharge. Patient understands and agrees with plan. All questions addressed at this time. Differential Diagnosis: Negative: Bacterial tracheitis, Cervical lymphadenitis , Croup, Dental abscess, Gingivitis, Hand, foot, mouth disease, Herpetic stomatitis, Cornell's angina, Parotitis, Retropharyngeal abscess, Tonsillitis, acute Counseled Regarding: Diagnosis, Need for follow-up, When/why to return to ED Discharge & Departure Primary Impression: Thrush, oral Disposition: Home Discharge Condition All VS Reviewed: Yes Condition: Stable Additional Instructions: 1. Take the nystatin 5ml (1 teaspoon) swish and swallow three-four times a day for the next week. 2. If needed take the viscous lidocaine 5ml up to three times a day for pain 3. If needed take the lortab elixir: 5-10ml (1-2 teaspoons) up to every 4-6 hours as needed for more severe pain. Note: This medication contains narcotic and causes drowsiness. No driving for at least 4 hours after taking 4. Symptoms are expected to be resolving rapidly. 5. If he have new or worsening symptoms, or symptoms are not improving rapidly- usually be seen and reevaluated. Referrals: Nandini Cotter (PCP) Talita Attestation Portions of this note were transcribed by Merlin Wong. I, Dr. Sanchez personally performed the history, physical exam and medical decision-making; I reviewed and confirmed the accuracy of the information in the transcribed note. Signed by: Talita Gleason, 07/20/17 copies to: Nandini Cotter Matthew F MD Jul 20, 2017 07:24 MERLIN WONG Jul 20, 2017 07:36
[2017-07-20] MEDS ORDERED: Nystatin 100,000 Unit/mL 5 mL Suspension PO ONE (07:40)
[2017-07-20] MEDS ORDERED: HYDROcodone-APAP 7.5-325 mg/15 mL 15 mL Solution PO ONE (07:40)
[2017-07-20] MEDS ORDERED: HYDR473S48 PO (07:59)
[2017-07-20] MEDS ORDERED: LIDO20SO MM (07:59)
[2017-07-20] MEDS ORDERED: NYST50002 PO (07:59)
[2017-07-20 08:33] VITALS: BP 187/76; PULSE 73; RESP 14; O2SAT 95
== END 2017-07-20 08:34 | disposition home or self-care (01) ==
LOC: SED 06:45
DX: B37.0 Candidal stomatitis (principal); I12.9 Hypertensive chronic kidney disease with stage 1 through stage 4 chronic kidney disease, or unspecified chronic kidney disease; N18.4 Chronic kidney disease, stage 4 (severe); E78.5 Hyperlipidemia, unspecified; Z79.82 Long term (current) use of aspirin; Z88.1 Allergy status to other antibiotic agents